=== PATIENT | female | born 1955 | race Caucasian/White ===

== ENCOUNTER → 2016-11-12 | Outpatient (CLI) | payer BC ==
--- NOTE | 2016-11-12 13:12 | P.PN ---
Progress Note - Text Patient returns for followup for chronic back pain with radiation to bilateral legs. Patient underwent LESI x 2 last year with excellent relief, which provided some relief for 6-8 months' interval. Patient continues on no pain medications at this morning. Patient denies adverse drug effects from medications. Today, pt denies new-onset weakness, bowel/bladder incontinence, or any other signs or symptoms of cauda equina syndrome. There are no signs of acute intoxication, and no indications of medication diversion or overuse. In addition to above, 13-point review of systems is also negative for chest pain , shortness of breath, changes in vision, changes in hearing, new onset weakness , abdominal pain, diarrhea, extreme fatigue, malaise, fever, skin changes, homicidal or suicidal ideation, or bowel or bladder incontinence. Vital Signs: Reviewed in EMR Gen: WDWN, AAOx3, NAD HEENT: NCAT, EOMI, hearing grossly normal Pulm: resp unlabored Abd: soft, NT, ND Neck: supple, trachea midline ROM in flexion lumbar spine: reduced ROM in extension lumbar spine: reduced Lumbar paravertebral tenderness: + Facet loading: + SI joint tenderness: neg bilateral Duran's test: neg bilateral Straight leg raise: + LLE at 25 degrees Neuro: CN II-XII grossly intact, muscle strength lower extremities PRESERVED Imaging: Reviewed in EMR Assessment: 1. lumbar radiculopathy 2. chronic pain syndrome Plan: 1. Explanation: Opioid and psychological risk scores were reviewed. Diagnoses , prognoses, and multiple treatment options including but not limited to physical therapy, interventional therapies, adjuvant medical therapies, narcotic medication therapies, and surgery were discussed with the patient and all questions were answered to the patient's satisfaction. 2. Opioid agreement: no opioids prescribed today 3. Counseling: The patient was counseled extensively on BODY MASS INDEX, EXERCISE. Specifically, the patient was instructed regarding the importance of weight loss and regular exercise in the context of both chronic pain and overall health. 4. Procedures: LESI series starting in 4-6 weeks 5. Consultations: None 6. Investigations: None 7. Medications: none prescribed 8. Disposition: f/u for PQRS measures: 1-Patient's medications are documented in the chart. 2-Tobacco use is negative 3-Patient has not had a pneumococcal vaccine. 4-Advanced care planning discussed, patient unable to give. 5-Opioid contract NOT signed with the patient as no opioids prescribed. 6-Pain positive, follow-up visit or procedure scheduled 7-Patient's blood pressure measured and documented, and patient will follow up with the primary care due to hypertension. 8-Patient's weight was measured, and body mass index ABOVE the normal limits, and counseling was done. Patient instructed to follow up with PCP. 9-Patient WAS NOT identified as an unhealthy alcohol user.
== END | disposition home or self-care (01) ==
CPT/HCPCS: 99211

== ENCOUNTER 2016-12-26 06:31 | Day surgery (SDC) | payer BC ==
[2016-12-25 12:17] VITALS: BMI 25.9
[2016-12-26] MEDS ORDERED: LIDOCAINE 1% 20 ML VIAL (10MG/ML) FOR IV START INTRADERMA ONE (06:39)
[2016-12-26 06:47] VITALS: RESP 16; TEMP 98.2
[2016-12-26] MEDS ORDERED: LACTATED RINGERS 1,000 ML IV ONE (06:51)
[2016-12-26] MEDS ORDERED: fentaNYL (PF) 50 MCG/ML 2 ML AMP ONE (07:13)
[2016-12-26] MEDS ORDERED: IOHEXOL 180 MG/ML 1 ML ML ONE (07:13)
[2016-12-26] MEDS ORDERED: MIDAZOLAM 2 MG/2 ML VIAL ONE (07:13)
[2016-12-26] MEDS ORDERED: TRIAMCINOLONE ACETONIDE 40 MG/ML 1 ML VIAL ONE (07:13)
[2016-12-26] MEDS ORDERED: LACTATED RINGERS 1,000 ML IV SCH (07:30)
[2016-12-26] MEDS ORDERED: IV FLUID CONTINUATION 1,000 ML IV ONE (07:34)
[2016-12-26 07:51] VITALS: PULSE 60
--- NOTE | 2016-12-26 07:55 | FL ---
EXAMINATION TYPE: FL guided pain mgmt statistic DATE OF EXAM: 12/26/2016 7:32 AM HISTORY: Pain 10 sec fl time used during lumbar epidural 2 images scanned into pacs
[2016-12-26 08:01] VITALS: BP 120/79
--- NOTE | 2016-12-26 11:34 | P.PCN ---
Date of Procedure: 12/26/16 Surgeon: Lamonte Wang Pathology: none sent Condition: stable Disposition: PACU Description of Procedure: PREOPERATIVE DIAGNOSIS: 1-Lumbar radiculitis. POSTOPERATIVE DIAGNOSIS: 1-Lumbar radiculitis. PROCEDURE 1. Lumbar epidural steroid injection under fluoroscopic guidance at the L5-S1 level. 2. Lumbar epidurogram. ANESTHESIA: Local with 1% lidocaine; IV sedation with Versed/fentanyl. EBL: Minimal PROCEDURE INDICATION: The patient with low back pain and radiculitis symptoms unresponsive to conservative treatment. Fluoroscopy was used to optimize visualization of the needle placement and to maximize safety. Patient had excellent relief from previous lumbar epidural injections performed in 2013 at our facility. No use of blood thinners. PROCEDURE DESCRIPTION / TECHNIQUE: The patient was seen and identified in the preoperative area. Risks, benefits, complications, and alternatives were discussed with the patient, including but not limited to bleeding, infection, nerve damage, allergic reactions to medications, and incomplete pain relief. The patient agreed to proceed with the procedure and signed the consent after all questions were answered. IV was started, and vital signs were stable. Patient was taken to the OR and time out was completed to confirm patient position, procedure, laterality of pain, and allergies. The patient was placed in the prone position on procedure table and a pillow was placed under the abdomen to reduce lumbar lordosis. The lumbosacral area was prepped and draped in the usual sterile fashion. Critical pause was taken. Vital signs were closely monitored during the procedure. Conscious sedation was used during the procedure to decrease patients anxiety. Using anterior-posterior fluoroscopy, the L5-S1 interlaminar space was identified and the skin over this site was marked and then infiltrated with 1% lidocaine subcutaneously. Subsequently, a 20-gauge 3.5" Tuohy epidural needle was inserted and advanced toward the epidural space using the Loss of resistance technique and guided by AP and lateral fluoroscopy. The correct needle position in the epidural space was verified with the injection of 2 mL of the water soluble contrast dye Omnipaque 300 contrast and observing an excellent epidurogram with the epidural spread of the dye, after negative aspiration for blood and CSF and in the absence of paresthesias. Again after negative aspiration, a 8 ml mixture containing 80 mg of Kenalog and 4 ml of preservative free Normal Saline, and 2 ml of preservative free lidocaine 1% solution was injected and a washout of epidurogram was seen. Needle was withdrawn intact, skin was cleansed, and bandages were applied. COMPLICATIONS: None COMMENTS: DISPOSITION / PLANS: The patient was placed in a supine position and transferred to the recovery area in a stable condition for observation. There was no evidence of lower extremity motor or sensory deficit after the procedure. Patient was discharged from the recovery room after meeting discharge criteria. Home discharge instructions were given to the patient by the staff. The patient was reexamined prior to discharge and there were no issues. The patient will schedule a follow up procedure in 4-6 weeks.
== END 2016-12-26 08:10 | disposition home or self-care (01) ==
LOC: ORPAIN 06:31
PROVIDERS: ATTEND Anesthesiology
DX: G89.29 Other chronic pain (principal); M54.16 Radiculopathy, lumbar region; E78.5 Hyperlipidemia, unspecified; E03.9 Hypothyroidism, unspecified; F41.9 Anxiety disorder, unspecified; Z88.2 Allergy status to sulfonamides; Z88.8 Allergy status to other drugs, medicaments and biological substances; Z79.1 Long term (current) use of non-steroidal anti-inflammatories (NSAID); Z79.899 Other long term (current) drug therapy
CPT/HCPCS: 62323; 99152; J2250; J3301; Q9965; J3010

== ENCOUNTER → 2016-12-30 | Outpatient (CLI) | payer BC ==
--- NOTE | 2016-12-30 11:39 | XR ---
EXAMINATION TYPE: XR shoulder complete LT DATE OF EXAM: 12/30/2016 11:20 AM CLINICAL HISTORY: pain COMPARISON: NONE TECHNIQUE: Three views of the left shoulder are obtained. FINDINGS: There is no acute fracture/dislocation evident. The acromioclavicular and glenohumeral kilo int spaces appear moderately narrowed. Bone spur formation noted about the humeral head.. The visual ized ribs are intact and unremarkable. IMPRESSION: 1. There is no acute fracture or dislocation. ICD 10 NO FRACTURE, INITIAL EVALUATION
== END | disposition home or self-care (01) ==
LOC: RADXRMAIN 11:00
PROVIDERS: ATTEND Family Medicine
DX: M25.512 Pain in left shoulder (principal)

== ENCOUNTER 2017-03-20 09:23 | Day surgery (SDC) | payer BC ==
[2017-03-20 09:38] VITALS: RESP 16; TEMP 98.2
[2017-03-20] MEDS ORDERED: LACTATED RINGERS 1,000 ML IV ONE (09:41)
[2017-03-20] MEDS ORDERED: LIDOCAINE 1% 20 ML VIAL (10MG/ML) FOR IV START INTRADERMA ONE (09:42)
[2017-03-20] MEDS ORDERED: MIDAZOLAM 2 MG/2 ML VIAL ONE (10:31)
[2017-03-20] MEDS ORDERED: IOHEXOL 180 MG/ML 1 ML ML ONE (10:31)
[2017-03-20] MEDS ORDERED: fentaNYL (PF) 50 MCG/ML 2 ML AMP ONE (10:31)
[2017-03-20] MEDS ORDERED: BUPIVACAINE (PF) 0.25% 30 ML VIAL ONE (10:31)
[2017-03-20] MEDS ORDERED: TRIAMCINOLONE ACETONIDE 40 MG/ML 1 ML VIAL ONE (10:31)
--- NOTE | 2017-03-20 10:49 | P.PCN ---
Date of Procedure: 03/20/17 Preoperative Diagnosis: Lumbar degenerative disc disease Postoperative Diagnosis: Same as above Procedure(s) Performed: Lumbar epidural steroid injection under fluoroscopic guidance Implants: Anesthesia: other (Moderate sedation) Surgeon: Dylan Perez Pathology: none sent Condition: stable Disposition: PACU Indications for Procedure: Operative Findings: Description of Procedure: The patient was seen in the preop holding area consent was obtained then she was brought into the procedure 1 placed in prone position. Skin was prepped with Betadine 3 and draped in a sterile manner. Lidocaine 1% was used to numb the skin up at the target point that was at the L5-S1 level. I used 20-gauge 3- 1/2 inch Touhy epidural needle with iodt-rn-daqgusvpvl to air to identify the epidural space. There was positive lfrp-pw-efzbfctydf to air at about 7 cm from skin negative aspiration for any CSF or blood and negative paresthesia after that I injected 1 mL of Omnipaque which showed typical epidurogram on the AP and lateral views of fluoroscopy then I injected 40 mg of Kenalog +2 MLS of Marcaine 0.25% +4 MLS of preservative free normal saline to a total volume of 7 MLS in epidural space. Patient tolerated procedure well.
[2017-03-20] MEDS ORDERED: IV FLUID CONTINUATION 1,000 ML IV ONE (10:52)
--- NOTE | 2017-03-20 10:59 | FL ---
Fluoroscopy INDICATION: Pain FINDINGS: Fluoroscopy time: 5 seconds. Images obtained: 3. IMPRESSIONS: 1. Documentation of fluoroscopy.
[2017-03-20 11:06] VITALS: BP 122/79; PULSE 56
[2017-03-20] MEDS ORDERED: LACTATED RINGERS 1,000 ML IV SCH (11:15)
== END 2017-03-20 11:41 | disposition home or self-care (01) ==
LOC: ORPAIN 09:23
PROVIDERS: ATTEND Anesthesiology
DX: M51.36 Other intervertebral disc degeneration, lumbar region (principal); Z88.2 Allergy status to sulfonamides; Z88.8 Allergy status to other drugs, medicaments and biological substances
CPT/HCPCS: 62323; J2250; J3301; Q9965; J3010

== ENCOUNTER → 2017-05-13 | Outpatient (CLI) | payer BC ==
[2017-05-13 15:00] VITALS: BP 147/91; PULSE 71; RESP 18; TEMP 98.1
--- NOTE | 2017-05-13 15:04 | P.PN ---
Progress Note - Text Patient returns for followup for chronic back pain with radiation to bilateral legs. Patient underwent LESI x 3 recently, which provided excellent relief and patient currently has no pain. Patient continues on no pain medications at this time. Patient denies adverse drug effects from medications. Today, pt denies new-onset weakness, bowel/bladder incontinence, or any other signs or symptoms of cauda equina syndrome. There are no signs of acute intoxication, and no indications of medication diversion or overuse. In addition to above, 13-point review of systems is also negative for chest pain , shortness of breath, changes in vision, changes in hearing, new onset weakness , abdominal pain, diarrhea, extreme fatigue, malaise, fever, skin changes, homicidal or suicidal ideation, or bowel or bladder incontinence. Vital Signs: Reviewed in EMR Gen: WDWN, AAOx3, NAD HEENT: NCAT, EOMI, hearing grossly normal patient not examined Neuro: CN II-XII grossly intact Imaging: Reviewed in EMR Assessment: 1. lumbar radiculopathy 2. chronic pain syndrome Plan: 1. Explanation: Opioid and psychological risk scores were reviewed. Diagnoses , prognoses, and multiple treatment options including but not limited to physical therapy, interventional therapies, adjuvant medical therapies, narcotic medication therapies, and surgery were discussed with the patient and all questions were answered to the patient's satisfaction. 2. Opioid agreement: no opioids prescribed today 3. Counseling: The patient was counseled extensively on BODY MASS INDEX, EXERCISE. Specifically, the patient was instructed regarding the importance of weight loss and regular exercise in the context of both chronic pain and overall health. 4. Procedures: none for now 5. Consultations: None 6. Investigations: None 7. Medications: none prescribed 8. Disposition: f/u as needed, patient can call to schedule next LESI series PQRS measures: 1-Patient's medications are documented in the chart. 2-Tobacco use is negative 3-Patient has not had a pneumococcal vaccine. 4-Advanced care planning discussed, patient unable to give. 5-Opioid contract NOT signed with the patient as no opioids prescribed. 6-Pain positive, follow-up visit or procedure scheduled 7-Patient's blood pressure measured and documented, and patient will follow up with the primary care due to hypertension. 8-Patient's weight was measured, and body mass index ABOVE the normal limits, and counseling was done. Patient instructed to follow up with PCP. 9-Patient WAS NOT identified as an unhealthy alcohol user.
== END ==
LOC: PNWHC3 14:29
PROVIDERS: ATTEND Anesthesiology
DX: M54.16 Radiculopathy, lumbar region (principal); Z79.891 Long term (current) use of opiate analgesic
CPT/HCPCS: 99211

== ENCOUNTER → 2017-05-14 | Outpatient (CLI) | payer BC ==
--- NOTE | 2017-05-15 09:28 | MM ---
Reason for exam: screening (asymptomatic). Last mammogram was performed 1 year and 2 months ago. History: Patient is postmenopausal. Cyst aspiration of the right breast, 1999. Took hormonal contraceptives for 8 years. Physical Findings: A clinical breast exam by your physician is recommended on an annual basis and results should be correlated with mammographic findings. MG Screening Mammo w CAD Bilateral CC and MLO view(s) were taken. Prior study comparison: March 08, 2016, bilateral MG screening mammo w CAD. There are scattered fibroglandular densities. Previous mammotome biopsy in the right breast. No significant changes when compared with prior studies. ASSESSMENT: Benign, BI-RAD 2 RECOMMENDATION: Routine screening mammogram of both breasts in 1 year.
== END | disposition home or self-care (01) ==
LOC: RADMAMWWP 09:00
PROVIDERS: ATTEND Family Medicine
DX: Z12.31 Encounter for screening mammogram for malignant neoplasm of breast (principal)

== ENCOUNTER 2017-05-30 09:34 | Day surgery (SDC) | payer BC ==
[2017-05-27 14:17] VITALS: BMI 24.1
[~2017-05-30 09:34] MED LIST: LACTATED RINGERS 1,000 ML IV SCH; LIDOCAINE 1% 20 ML VIAL (10MG/ML) FOR IV START INTRADERMA PRN
[2017-05-30 10:37] VITALS: RESP 16; TEMP 97.3
--- NOTE | 2017-05-30 11:52 | P.PCN ---
Date of Procedure: 05/30/17 Preoperative Diagnosis: Postoperative Diagnosis: Procedure(s) Performed: BRIEF HISTORY: Patient is a 62-year-old pleasant white female, scheduled for an elective colonoscopy as a part of screening for colorectal neoplasia. She does have strong family history of colon cancer in her brother at age 70, the studies 35 and the nephew at age 40. Her last colonoscopy was 6 years ago and was normal. PROCEDURE PERFORMED: Colonoscopy. PREOPERATIVE DIAGNOSIS: Screening for colon cancer/family history of colon cancer. IV sedation per Anesthesia. PROCEDURE: After informed consent was obtained, the patient, was brought into the endoscopy unit. IV sedation was administered by Anesthesia under continuous monitoring. Digital rectal examination was normal. Initially the Olympus CF- 160 flexible video colonoscope was then inserted in the rectum, gradually advanced into the cecum without any difficulty. Careful examination was performed as the scope was gradually being withdrawn. Ileocecal valve and the appendiceal orifice were visualized and appeared normal. Prep was excellent. Mucosa of the cecum, ascending colon, transverse colon, descending colon, sigmoid colon, and rectum appeared normal. Moderate sigmoid diverticulosis seen. Retroflexion was performed in the rectum and no lesions were seen. The patient tolerated the procedure well. IMPRESSION: Normal-appearing colon from rectum to cecum with no evidence of colorectal neoplasia . Scattered sigmoid diverticulosis. RECOMMENDATIONS: Findings of this examination were discussed with the patient as well as her family.. She was advised to have a repeat screening colonoscopy in 5 years because of the family history of colon cancer. Implants: Indications for Procedure: Operative Findings: Description of Procedure:
[2017-05-30 13:00] VITALS: BP 98/69; PULSE 70
== END 2017-05-30 13:01 | disposition home or self-care (01) ==
LOC: ORWHC2ENDO 09:34
PROVIDERS: ATTEND Internal Medicine Gastroenterology
DX: Z12.11 Encounter for screening for malignant neoplasm of colon (principal); K57.30 Diverticulosis of large intestine without perforation or abscess without bleeding; Z80.0 Family history of malignant neoplasm of digestive organs; E78.5 Hyperlipidemia, unspecified; E07.9 Disorder of thyroid, unspecified; Z79.899 Other long term (current) drug therapy; Z88.1 Allergy status to other antibiotic agents; Z88.2 Allergy status to sulfonamides; Z88.8 Allergy status to other drugs, medicaments and biological substances

== ENCOUNTER → 2017-12-15 | Outpatient (CLI) | payer BC ==
--- NOTE | 2017-12-15 09:32 | XR ---
EXAMINATION TYPE: XR foot complete LT DATE OF EXAM: 12/15/2017 COMPARISON: None HISTORY: 62-year-old female with dorsal left foot pain TECHNIQUE: 3 views FINDINGS: Mild degenerative change at the first MTP joint. Tiny plantar calcaneal spur. No acute fracture, subl uxation, or dislocation seen. Minimal dorsal mid foot degenerative spurring. IMPRESSION: Minimal dorsal mid foot degenerative spurring and mild degenerative change at the first MTP joint. Ti ny plantar calcaneal spur.
== END | disposition home or self-care (01) ==
LOC: RADXRMAIN 08:56
PROVIDERS: ATTEND Physician Assistant
DX: M77.32 Calcaneal spur, left foot (principal)

== ENCOUNTER → 2018-01-10 | Outpatient (CLI) | payer MEDICARE ==
--- NOTE | 2018-01-12 16:19 | MR ---
EXAMINATION TYPE: MR ankle LT wo con DATE OF EXAM: 01/10/2018 COMPARISON: NONE HISTORY: Left Ankle pain and Swelling x 3 months Standard multiplanar, multisequence MRI departmental protocol Multiplanar, multisequence images of the left ankle were acquired. FINDINGS: Distal Achilles tendon is within normal limits. Visualized portion of plantar fascia is unr emarkable. There is focal area of fluid along mid to distal aspect of the PL tendon seen best axial images 8 thr ough 11. Tendon remains intact. PB is felt within normal limits. Flexor tendons posterior medially are felt intact. Areas of increased signal seen in distal PT tendon , for reference coronal image 12. Mild diffuse subcutaneous edema medially is noted Extensor tendons anteriorly are intact. Anterior tibiofibular and the anterior talofibular ligaments are intact. There is moderate tibiotalar joint effusion. Medial deltoid ligaments are intact. Bone marrow signal intensity is preserved. Ankle mortise symmetry is maintained. There is subchondral cystic change midfoot level particularly at Lisfranc joint worse at the base of second metatarsal. N ormal sinus tarsi fat is seen. IMPRESSION: 1. Mild medial subcutaneous edema. Small to moderate-sized tibiotalar joint effusion. 2. Mild Tenosynovitis distal PL tendon. 3. Midfoot arthropathy as detailed above. 4. Partial tear/tendinosis of the distal PT tendon. 5. No ligamentous tear identified.
== END | disposition home or self-care (01) ==
LOC: RADMRIMAIN 12:00
PROVIDERS: ATTEND Orthopaedic Surgery
DX: M65.9 Synovitis and tenosynovitis, unspecified (principal); M12.872 Other specific arthropathies, not elsewhere classified, left ankle and foot

== ENCOUNTER → 2018-05-18 | Outpatient (CLI) | payer MEDICARE ==
--- NOTE | 2018-05-20 10:55 | MM ---
Reason for exam: screening (asymptomatic). Last mammogram was performed 1 year ago. History: Patient is postmenopausal. Cyst aspiration of the right breast, 1999. Took hormonal contraceptives for 8 years. Physical Findings: A clinical breast exam by your physician is recommended on an annual basis and results should be correlated with mammographic findings. MG 3D Screening Mammo W/Cad Bilateral CC and MLO view(s) were taken. Prior study comparison: May 14, 2017, bilateral MG screening mammo w CAD. March 08, 2016, bilateral MG screening mammo w CAD. There are scattered fibroglandular densities. No suspicious abnormality. No significant changes when compared with prior studies. ASSESSMENT: Negative, BI-RAD 1 RECOMMENDATION: Routine screening mammogram of both breasts in 1 year.
== END | disposition home or self-care (01) ==
LOC: RADMAMWWP 16:28
PROVIDERS: ATTEND Family Medicine
DX: Z12.31 Encounter for screening mammogram for malignant neoplasm of breast (principal)
CPT/HCPCS: 77063; 77067

== ENCOUNTER → 2018-11-19 | Outpatient (CLI) | payer MEDICARE | END | disposition home or self-care (01) | LOC: LABWHC1 10:42 | PROVIDERS: ATTEND Nurse Practitioner Adult Health | DX: E78.2 Mixed hyperlipidemia (principal) | CPT/HCPCS: 36415; 80061; 84450; 84460 ==

== ENCOUNTER → 2019-06-21 | Outpatient (CLI) | payer MEDICARE ==
[2019-06-21 18:04] LABS: Chol/HDL Ratio 2.27; LDL Cholesterol,Calculated 80.2 mg/dL (0.0-131.0); VLDL Calculation 19.8 mg/dL (5.00-40.00)
== END | disposition home or self-care (01) ==
LOC: LABWHC1 09:28
PROVIDERS: ATTEND Nurse Practitioner Adult Health
DX: E78.2 Mixed hyperlipidemia (principal)
CPT/HCPCS: 36415; 80061; 84450; 84460

== ENCOUNTER 2020-08-14 07:35 | Observation (INO) | payer MEDICARE ==
[2020-08-14] MEDS ORDERED: methylPREDNISolone SOD SUCCI 125 MG/2 ML VIAL IM ONE (08:11)
[2020-08-14] MEDS ORDERED: MORPHINE SULFATE 4 MG/ML SYRINGE IM STA (08:11)
[2020-08-14] MEDS ORDERED: ORPHENADRINE 30 MG/ML 2 ML VIAL IM STA (08:11)
--- NOTE | 2020-08-14 08:22 | ED ---
General Adult HPI - General Chief complaint: Extremity Problem,Nontraumatic Stated complaint: hip pain Time Seen by Provider: 08/14/20 07:56 Source: patient, RN notes reviewed, old records reviewed Mode of arrival: ambulatory Limitations: no limitations - History of Present Illness Initial comments: Chivo is a 65-year-old female presents returns today with complaint of lower back pain and sciatica down the left leg. She's been taking anti-inflammatory medicine steroid reports the pain is more severe today. Patient states that she received injections from her PCPs office on Friday. Patient states that she has had no loss of control of urine or bowel habits. - Related Data Home Medications Medication Instructions Recorded Confirmed Atorvastatin [Lipitor] 40 mg PO HS 11/12/16 08/14/20 Levothyroxine Sodium [Synthroid] 88 mcg PO DAILY 05/27/17 08/14/20 Baclofen [Lioresal] 10 mg PO BID PRN 08/14/20 08/14/20 Ibuprofen [Advil] 800 mg PO DAILY PRN 08/14/20 08/14/20 Irbesartan/Hydrochlorothiazide 1 tab PO DAILY 08/14/20 08/14/20 [Irbesartan-Hctz 300-12.5 mg Tb] Allergies Allergy/AdvReac Type Severity Reaction Status Date / Time ciprofloxacin [From Cipro] Allergy Unknown Swelling Verified 08/14/20 08:53 metoclopramide [From Reglan] Allergy Rash/Hives Verified 08/14/20 08:53 Sulfa (Sulfonamide Allergy Rash/Hives Verified 08/14/20 08:53 Antibiotics) Review of Systems ROS Statement: Those systems with pertinent positive or pertinent negative responses have been documented in the HPI. ROS Other: All systems not noted in ROS Statement are negative. Past Medical History Past Medical History: Hyperlipidemia, Thyroid Disorder Additional Past Medical History / Comment(s): TRIGEMINAL PVCs. HYPOTHYROID. History of Any Multi-Drug Resistant Organisms: None Reported Past Surgical History: Appendectomy, Cardiac Ablation, Hysterectomy, Orthopedic Surgery Additional Past Surgical History / Comment(s): TWO FAILED ATTEMPTS/CARDIAC ABLATION FOR PVC. Past Anesthesia/Blood Transfusion Reactions: No Reported Reaction Past Psychological History: No Psychological Hx Reported Smoking Status: Former smoker Past Alcohol Use History: Occasional Past Drug Use History: None Reported - Past Family History Mother Family Medical History: Cancer Brother(s) Family Medical History: Cancer, Coronary Artery Disease (CAD) General Exam - General Exam Comments Initial Comments: 65-year-old female. Alert and oriented 3. No significant distress. Limitations: no limitations General appearance: alert, in no apparent distress Head exam: Present: atraumatic, normocephalic, normal inspection Eye exam: Present: normal appearance, PERRL, EOMI. Absent: scleral icterus, conjunctival injection, periorbital swelling ENT exam: Present: normal exam, mucous membranes moist Neck exam: Present: normal inspection. Absent: tenderness, meningismus, lymphadenopathy Respiratory exam: Present: normal lung sounds bilaterally. Absent: respiratory distress, wheezes, rales, rhonchi, stridor Cardiovascular Exam: Present: regular rate, normal rhythm, normal heart sounds. Absent: systolic murmur, diastolic murmur, rubs, gallop, clicks GI/Abdominal exam: Present: soft, normal bowel sounds. Absent: distended, tenderness, guarding, rebound, rigid Extremities exam: Present: normal inspection, full ROM, normal capillary refill. Absent: tenderness, pedal edema, joint swelling, calf tenderness Back exam: Present: normal inspection, tenderness (Poinit tenderness over the left sciatic notch. No significant vertebral spinal tenderness.), other ( on her left leg and flex position. Significant pain with leg extension.). Absent: full ROM Neurological exam: Present: alert, oriented X3, CN II-XII intact Psychiatric exam: Present: normal affect, normal mood Skin exam: Present: warm, dry, intact, normal color. Absent: rash Course Vital Signs 08/14/20 07:44 Temperature 97.6 F Pulse Rate 65 Respiratory 16 Rate Blood Pressure 132/80 O2 Sat by Pulse 100 Oximetry - Reevaluation(s) Reevaluation #1: 08/14/20 09:13 Discussed with KT Cramer who requested admission to Dr. Davila with consults to Dr. Mcdaniel tomorrow. Medical Decision Making - Medical Decision Making Patient is a 65-year-old female with history of intermittent sciatic pain. Patient reports it's been worsening over the past week. She states that she has had no recent fall or trauma. Patient is unable to fully extend the left leg due to pain. She is neurovascularly intact with sensation equal in lower extremities and dorsalis pedis and posterior tibial pulse 2+ bilaterally. Patient attempted to have x-rays was unable tolerate keeping her leg straight to have x-rays completed. I discussed the case with Pam MERAZ who recommended admission Patient to receive IV steroids and possible MRI for back pain. Pt will be admitted to Dr. Clement. Disposition Clinical Impression: Intractable back pain, Sciatica Disposition: ADMITTED IP TO THIS HOSP Condition: Stable Is patient prescribed a controlled substance at d/c from ED?: No Referrals: Vincenzo Woo DO [Primary Care Provider] - 1-2 days Time of Disposition: 09:16
[2020-08-14] MEDS ORDERED: SODIUM CHLORIDE 0.9% 1,000 ML IV ONE (09:16)
[2020-08-14] MEDS ORDERED: HYDROmorphone 1 MG/ML 1 ML SYRINGE IVP STA (09:17)
[2020-08-14] MEDS ORDERED: MORPHINE SULFATE 4 MG/ML SYRINGE IV PRN (09:42)
[2020-08-14] MEDS ORDERED: ONDANSETRON 4 MG/2 ML VIAL IVP PRN (09:42)
[2020-08-14] MEDS ORDERED: ACETAMINOPHEN TAB 325 MG TAB PO PRN (09:42)
[2020-08-14] MEDS ORDERED: HYDROmorphone 1 MG/ML 1 ML SYRINGE IVP PRN (09:42)
[2020-08-14] MEDS ORDERED: IBUPROFEN 400 MG TAB PO PRN (09:42)
[2020-08-14] MEDS ORDERED: NALOXONE 0.4 MG/ML 1 ML VIAL IV PRN (09:42)
[2020-08-14] MEDS ORDERED: 0.9% NACL WITH KCL 20 MEQ/L 1,000 ML IV SCH (09:45)
[2020-08-14] MEDS ORDERED: methylPREDNISolone SOD SUCCI 125 MG/2 ML VIAL IV SCH (10:00)
[2020-08-14 10:10] LABS: Basophils % (A) 1 %; Eosinophils # (A) 0.1 k/uL (0-0.7); Eosinophils % (A) 1 %; HCT 39.4 % (34.0-46.0); HGB 13.2 gm/dL (11.4-16.0); Lymphocytes # (A) 1.2 k/uL (1.0-4.8); Lymphocytes % (A) 19 %; MCH 30.3 pg (25.0-35.0); MCHC 33.6 g/dL (31.0-37.0); MCV 90.2 fL (80.0-100.0); Monocytes # (A) 0.3 k/uL (0-1.0); Monocytes % (A) 5 %; Neutrophils # (A) 4.5 k/uL (1.3-7.7); Neutrophils % (A) 74 %; Platelet Count 253 k/uL (150-450); RBC 4.36 m/uL (3.80-5.40); RDW 12.2 % (11.5-15.5); WBC 6.2 k/uL (3.8-10.6)
[2020-08-14 10:18] LABS: ALT 21 U/L (4-34); AST 31 U/L (14-36); African American GFR (CKD) >90 (>60 ml/min/1.73 sqM); Albumin 4.2 g/dL (3.5-5.0); Alkaline Phosphatase 72 U/L (38-126); Anion Gap 4 mmol/L; Blood Urea Nitrogen 17 mg/dL (7-17); Calcium 9.4 mg/dL (8.4-10.2); Carbon Dioxide 26 mmol/L (22-30); Chloride 109 mmol/L (98-107); Glucose 95 mg/dL (74-99); Non-African American GFR(CKD) 88 (>60 ml/min/1.73 sqM); Potassium 4.5 mmol/L (3.5-5.1); Sodium 139 mmol/L (137-145); Total Bilirubin 0.4 mg/dL (0.2-1.3); Total Protein 7.1 g/dL (6.3-8.2)
[2020-08-14 10:19] LABS: INR 0.9 (<1.2); Partial Thromboplastin Time 25.6 sec (22.0-30.0); Prothrombin Time 9.5 sec (9.0-12.0)
--- NOTE | 2020-08-14 10:25 | XR ---
EXAMINATION TYPE: XR lumbar spine 2 or 3V DATE OF EXAM: 08/14/2020 Comparison: None Clinical History: 65-year-old female left hip pain, sciatica Findings: 5 lumbar type vertebral bodies. Moderate to advanced degenerative disc disease with disc space narrow ing, endplate spondylosis and sclerosis upper and mid lumbar spine. Trace grade 1 retrolisthesis at L 2-L3. Remaining alignment is maintained. Facet arthropathy mid to lower lumbar spine. Vertebral body heights are preserved. Impression: Moderate to advanced degenerative disc disease upper and mid lumbar spine and facet arthropathy mid t o lower lumbar spine. Degenerative trace grade 1 retrolisthesis at L2-L3. No vertebral compression co llapse.
--- NOTE | 2020-08-14 10:26 | XR ---
EXAMINATION TYPE: AP view pelvis and 2 views left hip DATE OF EXAM: 08/14/2020 COMPARISON: NONE HISTORY: 65 year-old female left hip pain FINDINGS: Mild superolateral narrowing of bilateral hip joint space appears relatively symmetric from side to s renée. Multiple pelvic phleboliths. Moderate stool within the visualized colon. Mild marginal spurring at the left hip. No acute fracture, subluxation, or dislocation. IMPRESSION: Mild bilateral hip OA. No acute osseous abnormality seen.
--- NOTE | 2020-08-14 12:33 | P.HPOR ---
History of Present Illness H&P Date: 08/14/20 Chief Complaint: Intractable low back pain This is a 65-year-old female presented to the emergency department early this morning with intractable low back and left lower extremity pain. She states that she was seen by her primary care on Friday and given a shot of Toradol and placed on a muscle relaxant. Her pain has gotten progressively worse and had immediate severe pain last evening when turning in bed. She was unable to ambulate secondary to pain. She is brought to the emergency department for evaluation. She is admitted to our service for further evaluation and pain management. Past Medical History Past Medical History: Hyperlipidemia, Thyroid Disorder Additional Past Medical History / Comment(s): TRIGEMINAL PVCs. HYPOTHYROID. History of Any Multi-Drug Resistant Organisms: None Reported Past Surgical History: Appendectomy, Cardiac Ablation, Hysterectomy, Orthopedic Surgery Additional Past Surgical History / Comment(s): TWO FAILED ATTEMPTS/CARDIAC ABLATION FOR PVC. Past Anesthesia/Blood Transfusion Reactions: No Reported Reaction Past Psychological History: No Psychological Hx Reported Smoking Status: Former smoker Past Alcohol Use History: Occasional Past Drug Use History: None Reported - Past Family History Mother Family Medical History: Cancer Brother(s) Family Medical History: Cancer, Coronary Artery Disease (CAD) Medications and Allergies Home Medications Medication Instructions Recorded Confirmed Type Atorvastatin [Lipitor] 40 mg PO HS 11/12/16 08/14/20 History Levothyroxine Sodium [Synthroid] 88 mcg PO DAILY 05/27/17 08/14/20 History Baclofen [Lioresal] 10 mg PO BID PRN 08/14/20 08/14/20 History Ibuprofen [Advil] 800 mg PO DAILY PRN 08/14/20 08/14/20 History Irbesartan/Hydrochlorothiazide 1 tab PO DAILY 08/14/20 08/14/20 History [Irbesartan-Hctz 300-12.5 mg Tb] Allergies Allergy/AdvReac Type Severity Reaction Status Date / Time ciprofloxacin [From Cipro] Allergy Unknown Swelling Verified 08/14/20 08:53 metoclopramide [From Reglan] Allergy Rash/Hives Verified 08/14/20 08:53 Sulfa (Sulfonamide Allergy Rash/Hives Verified 08/14/20 08:53 Antibiotics) Physical Examination This is a pleasant 65-year-old female in no acute distress. She is alert and oriented 3. Exam of the head neck reveal no obvious deformity. She has full cervical spine motion without difficulty or pain. Exam of the upper extremities reveals no obvious deformity. She has full shoulder, elbow, wrist and finger motion bilaterally. Neurovascular status to the upper extremities is intact. Exam of the thoracic and lumbar spine reveal no obvious deformity. There is minimal pain with palpation about the lower lumbar spine. There is pain over the left paraspinal musculature and left hip. Exam of the lower extremities reveals no shortening or rotational deformity. She is now able to bend the left leg with minimal pain. She has pain with straight leg raise. There is weakness with dorsiflexion of the great toe against resistance compared to the right foot. Straight leg raise is positive, producing pain to the left buttock. Results X-rays of the left hip reveal mild hip joint narrowing. No acute fracture or bony abnormality. X-rays of the lumbar spine reveal diffuse degenerative disc disease. There is loss of normal lumbar lordosis. There is significant disc space narrowing at L2-3 and L3-4, some disc space narrowing at L4 5. No acute fractures identified. - Labs Labs: Abnormal Lab Results - Last 24 Hours (Table) 08/14/20 Range/Units 10:03 Chloride 109 H (98-107) mmol/L H & H 08/14/20 Range/Units 10:03 Hgb 13.2 (11.4-16.0) gm/dL Hct 39.4 (34.0-46.0) % Coagulation 08/14/20 Range/Units 10:03 INR 0.9 (<1.2) Result Diagrams: 08/14/20 10:03 08/14/20 10:03 Assessment and Plan (1) Degenerative joint disease (DJD) of lumbar spine Current Visit: Yes Status: Acute Code(s): M47.816 - SPONDYLOSIS W/O MYELOPATHY OR RADICULOPATHY, LUMBAR REGION SNOMED Code(s): 140694941 (2) Intractable back pain Current Visit: Yes Status: Acute Code(s): M54.9 - DORSALGIA, UNSPECIFIED SNOMED Code(s): 016353676 (3) Sciatica Current Visit: Yes Status: Acute Code(s): M54.30 - SCIATICA, UNSPECIFIED SIDE SNOMED Code(s): 33994629 Plan: The clinical and x-ray findings are discussed with the patient. It is recommended she be admitted for further evaluation with MRI. I will consult Dr. Garcia for pain management evaluation for possible epidural steroid injection. We will also consult her primary care for medical management.
--- NOTE | 2020-08-14 14:17 | XR ---
MRI ORBIT HISTORY: Pre-MRI, back pain leg pain 3 views of the orbits Bone mineralization is maintained. Right frontal sinus is somewhat atrophic. Orbits are intact. Paran hitesh sinuses show no air-fluid level. IMPRESSION: No radiographic foreign body is evident.
--- NOTE | 2020-08-14 15:25 | P.PAINCN ---
History of Present Illness - Reason for Consult Consult date: 08/14/20 - History of Present Illness this is 65 years old female who was admitted to [facility], secondary to CVA or intractable low back with radiation to the left lower extremity, the pain is constant and increases with any activity, started last week, without any initiating event, and getting progressively worse over the last few days, she denies any fever or night sweats she denies any change in the bowel movement or urination but she reported that she is not able to ambulate secondary to severe pain in the back and left lower extremity Past Medical History Past Medical History: Hyperlipidemia, Thyroid Disorder Additional Past Medical History / Comment(s): TRIGEMINAL PVCs. HYPOTHYROID. History of Any Multi-Drug Resistant Organisms: None Reported Past Surgical History: Appendectomy, Cardiac Ablation, Hysterectomy, Orthopedic Surgery Additional Past Surgical History / Comment(s): TWO FAILED ATTEMPTS/CARDIAC ABLATION FOR PVC. Past Anesthesia/Blood Transfusion Reactions: No Reported Reaction Past Psychological History: No Psychological Hx Reported Smoking Status: Former smoker Past Alcohol Use History: Occasional Past Drug Use History: None Reported - Past Family History Mother Family Medical History: Cancer Additional Family Medical History / Comment(s): non hodgkins lymphoma Brother(s) Family Medical History: Cancer, Coronary Artery Disease (CAD) Medications and Allergies Home Medications Medication Instructions Recorded Confirmed Type Atorvastatin [Lipitor] 40 mg PO HS 11/12/16 08/14/20 History Levothyroxine Sodium [Synthroid] 88 mcg PO DAILY 05/27/17 08/14/20 History Baclofen [Lioresal] 10 mg PO BID PRN 08/14/20 08/14/20 History Ibuprofen [Advil] 800 mg PO DAILY PRN 08/14/20 08/14/20 History Irbesartan/Hydrochlorothiazide 1 tab PO DAILY 08/14/20 08/14/20 History [Irbesartan-Hctz 300-12.5 mg Tb] Allergies Allergy/AdvReac Type Severity Reaction Status Date / Time ciprofloxacin [From Cipro] Allergy Unknown Swelling Verified 08/14/20 08:53 metoclopramide [From Reglan] Allergy Rash/Hives Verified 08/14/20 08:53 Sulfa (Sulfonamide Allergy Rash/Hives Verified 08/14/20 08:53 Antibiotics) Physical Exam Vitals: Vital Signs Temp Pulse Pulse Resp BP BP Pulse Ox 08/14/20 15:00 98.0 F 63 16 120/77 96 08/14/20 14:01 97.7 F 63 18 113/67 99 08/14/20 14:00 63 18 113/67 99 08/14/20 13:00 18 111/73 99 08/14/20 12:00 59 L 18 109/67 99 08/14/20 11:00 58 L 18 127/70 99 08/14/20 10:00 18 08/14/20 09:00 18 08/14/20 08:47 18 08/14/20 07:44 97.6 F 65 16 132/80 100 Intake and Output 08/14/20 08/14/20 08/14/20 06:59 14:59 22:59 Other: Weight 60.781 kg Physical Examinations : -Constitutiona : Cooperative , not in acute distress . -HEENT : nech : supple , no Lymphadenopathy , normal thyroid size . : eyes : no ptosis , no icterus, no photophobia. - neurologic : Cranial nerve II to XII intact , no focal neurological deffecit . -psychatric : alert , oriented X 3 , appropriate affect , intact judgment and insight . -Lymphatic : no Lymphadenopathy . - musculoskeltal : Lumber spine moter stegnth lower extremities ,thigh and legs 5/5 Right side , 4/5 Left side deep tendon reflexes : normal Knee Jerk , normal ankle Jerk lumber facet Loading Test =positive Right , positive Left Range of motion of the lumbar spine Flexion 30 degrees, extension 10 degrees strait leg raising test = positive at 30 degreeon the left side Fabere test= positive Right , and positive LT . mild tenderness over the Sacroiliac joint on the Right , and Left sides Results CBC & Chem 7: 08/14/20 10:03 08/14/20 10:03 Labs: Abnormal Lab Results - Last 24 Hours (Table) 08/14/20 Range/Units 10:03 Chloride 109 H (98-107) mmol/L Comments: x-ray of the lumbar spine= multilevel lumbar degenerative disc disease and multilevel lumbar facet arthropathy Number of the lumbar spine= pending Assessment and Plan Plan: assessment and plan=1-lumbar radiculopathy. 2-lumbar degenerative disc disease. 3-lumbar spondylosis with lumbar facet arthropathy without myelopathy. patient will be in good candidate to have lumbar epidural steroid injections under fluoroscopy guidance which can be done tomorrow morning Time with Patient: Less than 30 PQRS Measure Charge Sheet PQRS Narrative: Smoking Status Former smoker Blood Pressure [Left Arm] 120/77 Blood Pressure 113/67 Pain Intensity [Lower Back] 0 Pain Intensity 0 Pain Scale Used Numeric (1 - 10) Scale Used Numeric (1 - 10) Home Medications: Ambulatory Orders Atorvastatin [Lipitor] 40 mg PO HS 11/12/16 Levothyroxine Sodium [Synthroid] 88 mcg PO DAILY 05/27/17 Baclofen [Lioresal] 10 mg PO BID PRN 08/14/20 Ibuprofen [Advil] 800 mg PO DAILY PRN 08/14/20 Irbesartan/Hydrochlorothiazide [Irbesartan-Hctz 300-12.5 mg Tb] 1 tab PO DAILY 08/14/20
[2020-08-14] MEDS: HYDROmorphone 0.5 MG/0.5 ML SYRINGE IVP PRN ×2 (16:06→22:55)
[2020-08-14] MEDS: methylPREDNISolone SOD SUCCI 125 MG/2 ML VIAL IV SCH (16:07)
[2020-08-14] MEDS: ONDANSETRON 4 MG/2 ML VIAL IVP PRN (18:07)
--- NOTE | 2020-08-14 21:31 | MR ---
EXAMINATION TYPE: MR lumbar spine wo con DATE OF EXAM: 08/14/2020 COMPARISON: Lumbar spine x-ray earlier today. HISTORY: Intractable back pain, sciatica TECHNIQUE: Multiplanar, multisequence imaging of the lumbar spine is performed without IV contrast. FINDINGS: There is redemonstration of slight dextroconvex scoliosis centered at L2 level. Sagittal im ages of the lumbar spine show vertebral body height to appear satisfactory. Loss of normal lumbar lee dosis. Multilevel disc desiccation. Multilevel disc space narrowing with relative sparing of the L5-S 1 level. Moderate to advanced disc space narrowing with heterogeneous bone uptake to endplate changes L3-L4 level. Moderate disc space narrowing with heterogeneous bone uptake to endplate changes L2-L3 level. Mild to moderate multilevel anterior spurring. The conus medullaris is normal in position and signal ending mid L1 level. Axial images at T12-L1 level shows mild broad-based disc bulge mildly effacing the anterior thecal sa c. Axial images at L1-L2 level show mild to moderate broad disc bulge mildly effacing the anterior theca l sac with mild facet arthropathy bilaterally. Patent bilateral neural foramina. Axial images at L2-L3 level show mild/moderate broad disc bulge and mild facet arthropathy bilaterall y. Mild effacement of the anterior left posterior lateral thecal sac. Mild left-sided inferior neural foraminal narrowing due to left foraminal disc protrusion component. Axial images at L3-L4 level mild/moderate facet arthropathy bilaterally. Spinal canal preserved. Mild right-sided and anterior inferior neural foraminal narrowing due to small foraminal disc protrusion. Axial images at L4-L5 level shows moderate facet degenerative changes and ligament flavum hypertrophy effacing posterior lateral thecal sac. There is mild/moderate broad-based posterior disc protrusion effacing the anterior thecal sac. There is [id number] bilateral anterior inferior neural forami nal narrowing. Axial images at L5-S1 levels with [id number] facet arthropathy bilaterally. Spinal canal is pre served. Patent bilateral neural foramina. Paraspinal muscle bulk is maintained. Partial visualization of suspected mildly distended bladder in the upper pelvis. IMPRESSION: Straightening of the lumbar spine with multilevel degenerative changes as detailed above. No suspicious findings seen to account for patient's clinical symptoms.
[2020-08-14] MEDS ORDERED: ATORVASTATIN 40 MG TAB PO SCH (22:15)
[2020-08-14] MEDS: ENOXAPARIN 40 MG/0.4 ML SYRINGE SQ SCH (22:57)
[2020-08-15] MEDS: methylPREDNISolone SOD SUCCI 125 MG/2 ML VIAL IV SCH ×2 (00:05→07:54)
[2020-08-15] MEDS: HYDROmorphone 0.5 MG/0.5 ML SYRINGE IVP PRN ×2 (04:20→07:55)
[2020-08-15] MEDS: ONDANSETRON 4 MG/2 ML VIAL IVP PRN ×2 (04:21→09:51)
[2020-08-15] MEDS ORDERED: LEVOTHYROXINE 88 MCG TAB PO SCH (06:30)
[2020-08-15] MEDS: ENOXAPARIN 40 MG/0.4 ML SYRINGE SQ SCH (08:04)
--- NOTE | 2020-08-15 08:08 | P.PN ---
Progress Note - Text Progress Note Date: 08/15/20 Patient is seen and examined today at bedside. She is having significant left lower extremity radiculopathy. She says that she is making some progress with the steroid medication and pain medication as she was able to stand up today and yesterday she was not able stand up and put weight on her leg at all. She has been able to void. She denies any fevers chills On exam she is afebrile stable vital signs She has sustained dorsiflexion plantar flexion and EHL on the left. She has some neural tension signs on left lower extremity. Her thighs and calves soft nontender The MRI report and images are reviewed and show a disc herniation at L4 5 on the left with significant left foraminal stenosis Assessment and plan Left lower extremity radiculopathy with disc herniation at L4 5 and left which correlates well with her left lower extremity and low back pain. Chronic low back pain and degenerative disc disease The patient has new left foraminal stenosis due to disc herniation. She does have chronic lumbar issues and has had initial pain management in the past. Her symptoms of the left lower extremity correlate well with the disc herniation at L4 5 and I think that she can have her the benefit with interventional pain management and epidural steroid injections. I appreciate Dr. Garcia's consultation and I would agree with the plan to proceed with epidural steroid injections today. If she is making good progress I think she can continue outpatient management and conservative care. We can see her back and consider further intervention and possible decompression surgery if she continues have significant symptoms or worsening of her pain. I discussed this with her and answered her questions and she is agreeable.
[2020-08-15] MEDS ORDERED: LOSARTAN 50 MG TAB PO SCH (09:00)
[2020-08-15] MEDS ORDERED: hydroCHLOROthiazide 25 MG TAB PO SCH (09:00)
[2020-08-15] MEDS ORDERED: LACTATED RINGERS 1,000 ML IV ONE (09:42)
[2020-08-15 09:46] VITALS: RESP 16
[2020-08-15] MEDS ORDERED: methylPREDNISolone ACETATE 40 MG/ML 1 ML VIAL ONE (10:04)
[2020-08-15] MEDS ORDERED: IOPAMIDOL M200 10 ML VIAL ONE (10:04)
--- NOTE | 2020-08-15 10:21 | P.PCN ---
Date of Procedure: 08/15/20 Procedure(s) Performed: PREOPERATIVE DIAGNOSIS: 1- Lumbar Degenerative Disc Diseases 2-Lumbar spondylosis with Facet arthropathy without myelopathy 3-lumbar radiculopathy POSTOPERATIVE DIAGNOSIS: 1-Lumber Degenerative Disc Diseases 2-Lumbar spondylosis with Facet arthropathy without myelopathy. 3-lumbar radiculopathy PROCEDURE 1. Lumbar epidural steroid injection under fluoroscopic guidance at the L5-S1 level. (Fluoroscopy imaging was available in radiology department) 2. Lumbar epidurogram. ANESTHESIA: Local with 1% lidocaine 3 ml a EBL: Minimal PROCEDURE INDICATION: The patient with low back pain and radiculitis symptoms unresponsive to conservative treatment. Fluoroscopy was used to optimize visualization of the needle placement and to maximize safety. PROCEDURE DESCRIPTION / TECHNIQUE: The patient was seen and identified in the preoperative area. Risks, benefits, complications including but not limited to infections ,bleeding ,allergic reaction to the medications ,nerve damage and not complete pain releife , and alternatives were discussed with the patient. The patient agreed to proceed with the procedure and signed the consent. IV was started, and vital signs were stable. Patient was taken to the OR and time out was completed. The patient was placed in the prone position on procedure table and a pillow was placed under the abdomen to reduce lumbar lordosis. The lumbosacral area was prepped and draped in the usual sterile fashion.ere closely monitored during the procedure. Conscious sedation was used during the procedure to decrease patients anxiety. Vital signs was monitered during the entire procedure. Using anterior-posterior fluoroscopy, the L5-S1 interlaminar space was identified and the skin over this site was marked and then infiltrated with 1% lidocaine subcutaneously. Subsequently, a 20-gauge Tuohy epidural needle was inserted and advanced toward the epidural space using the ``Loss of resistance technique and guided by AP and lateral fluoroscopy. The correct needle position in the epidural space was verified with the injection of 2 mL of the water soluble contrast dye Isovue 200 contrast and observing an excellent epidurogram with the epidural spread of the dye, after negative aspiration for blood and CSF and in the absence of paresthesias. Again after negative aspiration, a 6 ml mixture containing 80 mg of Depo-medrol , and 2 ml of preservative free Normal Saline, and 2 ml of preservative free lidocaine 1% solution was injected and a washout of epidurogram was seen. Needle was withdrawn intact, skin was cleansed, and bandages were applied. COMPLICATIONS: None DISPOSITION / PLANS: The patient was placed in a supine position and transferred to the recovery area in a stable condition for observation. There was no evidence of lower extremity motor or sensory deficit after the procedure. Patient was discharged from the recovery room after meeting discharge criteria. Home discharge instructions were given to the patient by the staff. The patient was reexamined prior to discharge. The patient will schedule a follow up in the clinic in 2-4 weeks. patient given prescription for [place] 5/325 one tablet by mouth every 8 hours when necessary dispensed 20 and she can be discharged home.
--- NOTE | 2020-08-15 10:31 | FL ---
EXAMINATION TYPE: FL guided pain mgmt statistic DATE OF EXAM: 08/15/2020 FLUOROSCOPY Fluoroscopy time of 2 seconds was used during lumbar epidural injection. 1 image/s document/s the pr dorothy.
--- NOTE | 2020-08-15 10:40 | P.DS ---
Providers Date of admission: 08/14/20 09:06 Expected date of discharge: 08/15/20 Attending physician: Grzegorz Clement Consults: 08/14/20 09:42 Consult Physician Stat Consulting Provider: Mary Mcdaniel Consult Reason/Comments: intractable back pain Do you want consulting provider notified?: Yes, Notify in am 08/14/20 12:32 Consult Physician Urgent Consulting Provider: Abebe Garcia Consult Reason/Comments: Pain management eval, poss henry. Do you want consulting provider notified?: Yes 08/14/20 12:35 Consult Physician Routine Consulting Provider: Vincenzo Woo Consult Reason/Comments: medical erich. Do you want consulting provider notified?: Yes Primary care physician: Vincenzo Woo - Discharge Diagnosis(es) (1) Degenerative joint disease (DJD) of lumbar spine Current Visit: Yes Status: Acute (2) Intractable back pain Current Visit: Yes Status: Acute (3) Sciatica Current Visit: Yes Status: Acute Hospital Course: This is a 65-year-old female presented to the emergency department early this morning with intractable low back and left lower extremity pain. She states that she was seen by her primary care on Friday and given a shot of Toradol and placed on a muscle relaxant. Her pain has gotten progressively worse and had immediate severe pain last evening when turning in bed. She was unable to ambulate secondary to pain. She is brought to the emergency department for evaluation. She is admitted to our service for further evaluation and pain management. The patient improved slightly with IV steroids. She was seen by pain management and was taken for a lumbar epidural steroid injection on 08/15/2020. Patient is doing well post procedure. She may be discharged to home today in stable condition. Patient Condition at Discharge: Stable Plan - Discharge Summary Discharge Rx Participant: Yes New Discharge Prescriptions: New Ondansetron Odt [Zofran Odt] 4 mg PO Q8HR PRN #14 tab PRN Reason: Nausea No Action Atorvastatin [Lipitor] 40 mg PO HS Levothyroxine Sodium [Synthroid] 88 mcg PO DAILY Irbesartan/Hydrochlorothiazide [Irbesartan-Hctz 300-12.5 mg Tb] 1 tab PO DAILY Ibuprofen [Advil] 800 mg PO DAILY PRN PRN Reason: Pain Baclofen [Lioresal] 10 mg PO BID PRN PRN Reason: Muscle Spasm Discharge Medication List Atorvastatin [Lipitor] 40 mg PO HS 11/12/16 [History] Levothyroxine Sodium [Synthroid] 88 mcg PO DAILY 05/27/17 [History] Baclofen [Lioresal] 10 mg PO BID PRN 08/14/20 [History] Ibuprofen [Advil] 800 mg PO DAILY PRN 08/14/20 [History] Irbesartan/Hydrochlorothiazide [Irbesartan-Hctz 300-12.5 mg Tb] 1 tab PO DAILY 08/14/20 [History] Ondansetron Odt [Zofran Odt] 4 mg PO Q8HR PRN #14 tab 08/15/20 [Rx] Follow up Appointment(s)/Referral(s): Mary Mcdaniel DO [Doctor of Osteopathic Medicine] - 1 Week Vincenzo Woo DO [Primary Care Provider] - 1-2 days Activity/Diet/Wound Care/Special Instructions: Pain management per Dr. Garcia. Follow up with Dr. Mcdaniel 2 weeks. Activity as tolerated. Discharge/Stand Alone Forms: Anes Pain/[facility] Instructions Discharge Disposition: HOME SELF-CARE
[2020-08-15 11:41] VITALS: BP 125/71; PULSE 61; TEMP 97.6
--- NOTE | 2020-08-15 23:55 | P.CONS ---
History of Present Illness - Reason for Consult Consult date: 08/15/20 Medical management Requesting physician: Grzegorz Clement - Chief Complaint Low back pain - History of Present Illness Consultation: This is a pleasant [address] Maria A Woo. Chronic stable medical conditions include hyperlipidemia, hypothyroid, PVCs. Patient's had a problem with sciatica/5 years. Has been getting steroid injections by Dr. Osman kyle. Patient going to see Dr. Woo because increasing pain in the lumbar area going down the left leg. She is not able to weight-bear. Symptoms became indicated much worse. Admitted for the same. No fever no chills. No involvement of the bladder. This morning patient did get a epidural steroid inj ection. Feeling better. Review of systems: GEN.: None EYES: None HEENT: None NECK: None RESPIRATORY: None CARDIOVASCULAR: None GASTROINTESTINAL: None GENITOURINARY: None MUSCULOSKELETAL: As above LYMPHATICS: None HEMATOLOGICAL: None PSYCHIATRY: None NEUROLOGICAL: None Past medical history to include: Hyperlipidemia, hypothyroid, sciatica, PVCs Social history: . Does not smoke. Alcohol occasionally. Physical examination: VITAL SIGNS: 97.4, 68, 16, 144/68, 97% room air GENERAL: BMI 25.3, sitting on bed, comfortable. EYES: Pupils equal. Conjunctiva normal. HEENT: External appearance of nose and ears normal, oral cavity grossly normal. NECK: JVD not raised; masses not palpable. HEART: First and second heart sounds are normal; no edema. LUNGS: Respiratory rate normal; clear to auscultation. ABDOMEN: Soft, nontender, liver spleen not palpable, no masses palpable. PSYCH: Alert and oriented x3; mood and affect normal. MUSCULAR skeletal: Good range of motion speculums left hip. NEUROLOGICAL: Cranial nerves grossly intact; no facial asymmetry, power and sensation grossly intact. LYMPHATICS: No lymph nodes palpable in the axilla and neck INVESTIGATIONS, reviewed in the clinical context: White count 6.2 hemoglobin 13.2 platelets 253 potassium 4.5 creatinine 0.7 to Lumbar spine x-ray moderate to advanced DJD MRI of the spine lumbar-multilevel DJD changes Assessment: -Acute on chronic worsening of sciatica with severe retinopathy going down the left leg. Patient is unable to weight-bear on the left leg. Now status post right injection feeling much better. -Hypothyroid -Essential hypertension -Hyperlipidemia Plan: Care was discussed with the patient. Questions were answered. She is pain is doing much better. Patient able to ablate. She'll follow-up with family doctor but discharge. Thank you Dr. Clement Past Medical History Past Medical History: Hyperlipidemia, Thyroid Disorder Additional Past Medical History / Comment(s): TRIGEMINAL PVCs. HYPOTHYROID. History of Any Multi-Drug Resistant Organisms: None Reported Past Surgical History: Appendectomy, Cardiac Ablation, Hysterectomy, Orthopedic Surgery Additional Past Surgical History / Comment(s): TWO FAILED ATTEMPTS/CARDIAC ABLATION FOR PVC. Past Anesthesia/Blood Transfusion Reactions: No Reported Reaction Past Psychological History: No Psychological Hx Reported Smoking Status: Former smoker Past Alcohol Use History: Occasional Past Drug Use History: None Reported - Past Family History Mother Family Medical History: Cancer Additional Family Medical History / Comment(s): non hodgkins lymphoma Brother(s) Family Medical History: Cancer, Coronary Artery Disease (CAD) Medications and Allergies Home Medications Medication Instructions Recorded Confirmed Type Atorvastatin [Lipitor] 40 mg PO HS 11/12/16 08/14/20 History Levothyroxine Sodium [Synthroid] 88 mcg PO DAILY 05/27/17 08/14/20 History Baclofen [Lioresal] 10 mg PO BID PRN 08/14/20 08/14/20 History Irbesartan/Hydrochlorothiazide 1 tab PO DAILY 08/14/20 08/14/20 History [Irbesartan-Hctz 300-12.5 mg Tb] Ondansetron Odt [Zofran Odt] 4 mg PO Q8HR PRN #14 tab 08/15/20 Rx Allergies Allergy/AdvReac Type Severity Reaction Status Date / Time ciprofloxacin [From Cipro] Allergy Unknown Swelling Verified 08/15/20 09:52 metoclopramide [From Reglan] Allergy Rash/Hives Verified 08/15/20 09:52 Sulfa (Sulfonamide Allergy Rash/Hives Verified 08/15/20 09:52 Antibiotics) Physical Exam Vitals: Vital Signs Temp Pulse Pulse Resp BP BP Pulse Ox 08/15/20 09:43 97.4 F L 68 16 144/68 97 08/15/20 05:00 97.8 F 61 14 124/63 96 08/14/20 23:50 16 08/14/20 21:00 97.5 F L 61 16 114/63 97 08/14/20 15:00 98.0 F 63 16 120/77 96 08/14/20 14:01 97.7 F 63 18 113/67 99 08/14/20 14:00 63 18 113/67 99 08/14/20 13:00 18 111/73 99 08/14/20 12:00 59 L 18 109/67 99 08/14/20 11:00 58 L 18 127/70 99 Intake and Output 08/14/20 08/15/20 08/15/20 22:59 06:59 14:59 Intake Total 300 100 50 Balance 300 100 50 Intake: IV 50 Oral 300 100 Other: Voiding Method Toilet # Voids 1 1 1 Results CBC & Chem 7: 08/14/20 10:03 08/14/20 10:03
== END 2020-08-15 13:48 | disposition home or self-care (01) ==
LOC: EC 07:35 → 6NMEDSUR 09:06
PROVIDERS: ADMIT Orthopaedic Surgery; ATTEND Orthopaedic Surgery
DX: M51.06 Intervertebral disc disorders with myelopathy, lumbar region (principal); M51.16 Intervertebral disc disorders with radiculopathy, lumbar region; M79.605 Pain in left leg; E03.9 Hypothyroidism, unspecified; E78.5 Hyperlipidemia, unspecified; G89.29 Other chronic pain; H35.00 Unspecified background retinopathy; I10 Essential (primary) hypertension; I49.3 Ventricular premature depolarization; M47.16 Other spondylosis with myelopathy, lumbar region; M47.26 Other spondylosis with radiculopathy, lumbar region; M48.00 Spinal stenosis, site unspecified; Z79.890 Hormone replacement therapy; Z79.899 Other long term (current) drug therapy; Z80.7 Family history of other malignant neoplasms of lymphoid, hematopoietic and related tissues; Z82.49 Family history of ischemic heart disease and other diseases of the circulatory system; Z87.891 Personal history of nicotine dependence; Z90.710 Acquired absence of both cervix and uterus
CPT/HCPCS: 62323; 96361; 96372; 96374; 96375; 99285; 36415; 80053; 85025; 85610; 85730; 70030; 72100; 73502; 72148; G0378 ×2; J2270; J1030; J2360; J2930 ×2; J2405 ×2; J1170 ×3; Q9966; 96376

== ENCOUNTER 2020-09-12 09:29 | Day surgery (SDC) | payer MEDICARE ==
[2020-09-08 15:37] VITALS: BMI 24.9
[2020-09-12 09:48] VITALS: RESP 16; TEMP 98
[2020-09-12] MEDS ORDERED: SODIUM CHLORIDE 0.9% (PF) 10 ML VIAL ONE (09:48)
[2020-09-12] MEDS ORDERED: DEXAMETHASONE SOD PHOSPHATE 10 MG/ML 1 ML VIAL ONE (09:48)
[2020-09-12] MEDS ORDERED: IOPAMIDOL M200 10 ML VIAL ONE (09:48)
[2020-09-12] MEDS ORDERED: TRIAMCINOLONE ACETONIDE 40 MG/ML 1 ML VIAL ONE (09:48)
--- NOTE | 2020-09-12 10:04 | P.PCN ---
Date of Procedure: 09/12/20 Description of Procedure: PREOPERATIVE DIAGNOSIS: 1- Lumbar Degenerative Disc Diseases 2-Lumbar spondylosis with Facet arthropathy without myelopathy 3-lumbar radiculopathy POSTOPERATIVE DIAGNOSIS: 1-Lumber Degenerative Disc Diseases 2-Lumbar spondylosis with Facet arthropathy without myelopathy. 3-lumbar radiculopathy PROCEDURE 1. Lumbar epidural steroid injection under fluoroscopic guidance at the L5-S1 level. (Fluoroscopy imaging was available in radiology department) 2. Lumbar epidurogram. ANESTHESIA: Local with 1% lidocaine 3 ml EBL: Minimal PROCEDURE INDICATION: The patient with low back pain and radiculitis symptoms unresponsive to conservative treatment. Fluoroscopy was used to optimize visualization of the needle placement and to maximize safety. PROCEDURE DESCRIPTION / TECHNIQUE: The patient was seen and identified in the preoperative area. Risks, benefits, complications including but not limited to infections ,bleeding ,allergic reaction to the medications ,nerve damage and not complete pain releife , and alternatives were discussed with the patient. The patient agreed to proceed with the procedure and signed the consent. IV was started, and vital signs were stable. Patient was taken to the OR and time out was completed. The patient was placed in the prone position on procedure table and a pillow was placed under the abdomen to reduce lumbar lordosis. The lumbosacral area was prepped and draped in the usual sterile fashion.ere closely monitored during the procedure. Conscious sedation was used during the procedure to decrease patients anxiety. Vital signs was monitered during the entire procedure. Using anterior-posterior fluoroscopy, the L5-S1 interlaminar space was identified and the skin over this site was marked and then infiltrated with 1% lidocaine subcutaneously. Subsequently, a 20-gauge Tuohy epidural needle was inserted and advanced toward the epidural space using the ``Loss of resistance technique and guided by AP and lateral fluoroscopy. The correct needle position in the epidural space was verified with the injection of 2 mL of the water soluble contrast dye Isovue 200 contrast and observing an excellent epidurogram with the epidural spread of the dye, after negative aspiration for blood and CSF and in the absence of paresthesias. Again after negative aspiration, a 6 ml mixture containing 40 mg of Kenalog , and 2 ml of preservative free Normal Saline, and 2 ml of preservative free lidocaine 1% solution was injected and a washout of epidurogram was seen. Needle was withdrawn intact, skin was cleansed, and bandages were applied. COMPLICATIONS: None DISPOSITION / PLANS: The patient was placed in a supine position and transferred to the recovery area in a stable condition for observation. There was no evidence of lower extremity motor or sensory deficit after the procedure. Patient was discharged from the recovery room after meeting discharge criteria. Home discharge instructions were given to the patient by the staff. The patient was reexamined prior to discharge. The patient will schedule a follow up in the clinic in 8 weeks.
[2020-09-12 10:09] VITALS: BP 128/78; PULSE 67
--- NOTE | 2020-09-12 10:20 | FL ---
Fluoroscopy INDICATION: Pain FINDINGS: Fluoroscopy time: 8 seconds. Images obtained: 2. IMPRESSIONS: 1. Documentation of fluoroscopy.
--- NOTE | 2020-09-14 06:20 | CDI ---
Outpatient Documentation Clarification Form Date: 09/14/20 CDS/Fish Cutting Machine Operator Name: Nannette Burt Phone: If any questions, call Lois Hermosillo Fertilizing Machine Operator at [phone] Patient Name: Kathy Ellis Admit Date: 09/12/20 Discharge Date: 09/12/20 ATTENTION: The [facility] Coding Staff appreciate your assistance in clarifying documentation. Please respond to the clarification below the line at the bottom and electronically sign. The [facility] Coding staff will review the response and follow-up if needed. Please note: Queries are made part of the Legal Health Record. If you have any questions, please contact the Fertilizing Machine Operator. Dear Dr. Watson, Please provide clarification as to the type of anesthesia used. The procedure note under anesthesia documents Local with 1% lidocaine 3 ml. Also on the procedure note under Procedure Description/Technique in the second paragraph it is documented that conscious sedation was used during the procedure. Please clarify by choosing one of the following: Moderate/conscious sedation MAC/unconscious sedation Local anesthetic Thank you for your kind consideration . MTDD
--- NOTE | 2020-09-20 08:49 | CDI ---
I used local anesthetic for this procedure, no sedation Outpatient Documentation Clarification Form Date: 09/20/20 CDS/Cp Bleacher Operator Name: Nannette Burt Phone: If any questions, call Lois Hermosillo Relay Man at [phone] Patient Name: Kathy Ellis Admit Date: 09/12/20 Discharge Date: 09/12/20 ATTENTION: The [facility] Coding Staff appreciate your assistance in clarifying documentation. Please respond to the clarification below the line at the bottom and electronically sign. The [facility] Coding staff will review the response and follow-up if needed. Please note: Queries are made part of the Legal Health Record. If you have any questions, please contact the Relay Man. Dear Dr. Watson, Please provide clarification as to the type of anesthesia used. The procedure note under anesthesia documents Local with 1% lidocaine 3 ml. Also on the procedure note under Procedure Description/Technique in the second paragraph it is documented that conscious sedation was used during the procedure. Please clarify by choosing one of the following: Moderate/conscious sedation MAC/unconscious sedation Local anesthetic Thank you for your kind consideration MTDD
== END 2020-09-12 10:30 | disposition home or self-care (01) ==
LOC: ORPAIN 09:29
PROVIDERS: ATTEND Anesthesiology
DX: M47.26 Other spondylosis with radiculopathy, lumbar region (principal); M51.16 Intervertebral disc disorders with radiculopathy, lumbar region; Z88.1 Allergy status to other antibiotic agents; Z88.2 Allergy status to sulfonamides; Z90.710 Acquired absence of both cervix and uterus
CPT/HCPCS: 62323; J1100; J3301; Q9966

== ENCOUNTER → 2020-10-05 | Outpatient (CLI) | payer MEDICARE ==
--- NOTE | 2020-10-09 11:18 | MM ---
Reason for exam: screening (asymptomatic). Last mammogram was performed 2 years and 5 months ago. History: Patient is postmenopausal. Cyst aspiration of the right breast, 1999. Took hormonal contraceptives for 8 years. Physical Findings: A clinical breast exam by your physician is recommended on an annual basis and results should be correlated with mammographic findings. MG Screening Mammo w CAD Bilateral CC and MLO view(s) were taken. Prior study comparison: May 18, 2018, bilateral MG 3d screening mammo w/cad. May 14, 2017, bilateral MG screening mammo w CAD. There are scattered fibroglandular densities. No significant changes when compared with prior studies. ASSESSMENT: Benign, BI-RAD 2 RECOMMENDATION: Routine screening mammogram of both breasts in 1 year.
== END | disposition home or self-care (01) ==
LOC: RADMAMWWP 09:38
PROVIDERS: ATTEND Family Medicine
DX: Z12.31 Encounter for screening mammogram for malignant neoplasm of breast (principal)
CPT/HCPCS: 77067

== ENCOUNTER → 2020-11-08 | Outpatient (CLI) | payer MEDICARE ==
[2020-11-08 11:10] VITALS: BP 114/77; PULSE 81; RESP 18; TEMP 97.5
--- NOTE | 2020-11-08 12:10 | P.PN ---
Progress Note - Text Progress Note Date: 11/08/20 This is a follow-up visit for this 65 years old female with a history of severe low back pain she stateslumbar degenerative disc disease, lumbar spondylosis with lumbar facet arthropathy, status post lumbar epidural steroid injections 2, her pain improved significantly she denies any motor or sensory deficit she denies any fever or night sweats and she reported that her pain level now 1-2/10 , she uses naproxen when necessary and she uses it once or twice a week, she has no side effect of the medication, patient doing very well and she will follow up in the pain clinic when necessary
== END | disposition home or self-care (01) ==
LOC: PNWHC3 10:54
PROVIDERS: ATTEND Specialist
DX: M51.36 Other intervertebral disc degeneration, lumbar region (principal); M47.816 Spondylosis without myelopathy or radiculopathy, lumbar region
CPT/HCPCS: 99211

== ENCOUNTER → 2021-03-14 | Outpatient (CLI) | payer MEDICARE ==
--- NOTE | 2021-03-14 12:48 | P.PN ---
Subjective Progress Note Date: 03/14/21 This is a 66-year-old lady with history of chronic lower back pain with rad iation to the lower extremities. Today her pain is radiating down the right leg to the right big toe with numbness and tingling in the right neck tilt. The patient has been having epidural steroid injection for the last few years which gave her momentary relief of pain. The last injection was done in August 2020. Patient denies new-onset weakness, bowel/bladder incontinence, or any other si gns or symptoms of cauda equina syndrome. There are no signs of acute intoxication, and no indications of medication diversion or overuse. In addition to above, 13-point review of systems is also negative for chest pain, shortness of breath, changes in vision, changes in hearing, new onset weakness, abdominal pain, diarrhea, extreme fatigue, malaise, fever, skin changes, homicidal or suicidal ideation, or bowel or bladder incontinence. Vital Signs: Reviewed in EMR Gen: AAOx3, NAD HEENT: PERRLA,hearing grossly normal Pulm: resp unlabored Neck: supple, trachea midline Neuro exam of the lower extremities: Absent left ankle reflex and the rest of the exam is normal and symmetrical Straight leg raising test: Negative bilaterally Duran's test: Range of motion of the lumbar spine: Facet loading test: Tenderness in the paravertebral musculature: Manan tenderness in the lumbar paravertebral musculature bilaterally Neuro: CN II-XII grossly intact, Imaging: Reviewed in EMR/chart Assessment: Right lumbar radiculopathy Lumbar spondylosis without myelopathy Plan: 1. Explanation: Opioid and psychological risk scores were reviewed. Diagnoses, prognoses, and multiple treatment options including but not limited to physical therapy, interventional therapies, adjuvant medical therapies, narcotic medication therapies, and surgery were discussed with the patient and all questions were answered to the patient's satisfaction. 2. Opioid agreement: Signed with the patient and the patient is warned not to use opioids while driving or before driving and not to combine opioids with benzodiazepines or alcohol. 3. Counseling: The patient was counseled extensively on SMOKING CESSATION, BODY MASS INDEX, EXERCISE. Specifically, the patient was instructed regarding the importance of smoking cessation, obesity, and exercise in the context of both chronic pain and overall health. 4. Procedures: schedule for lumbar epidural steroid injection at the L5-S1 level in the right paramedian approach 5. Consultations: None 6. Investigations: None 7. Medications: None prescribed from our clinic 8. Disposition: Proceed with the above-mentioned procedure as soon as possible 9. Maps were reviewed and were appropriate.
== END ==
CPT/HCPCS: 99211

== ENCOUNTER 2021-04-10 13:15 | Day surgery (SDC) | payer MEDICARE ==
[2021-04-06 14:38] VITALS: BMI 25.1
[2021-04-10] MEDS ORDERED: LACTATED RINGERS 1,000 ML IV SCH (13:27)
[2021-04-10 13:40] VITALS: TEMP 97.7
[2021-04-10] MEDS ORDERED: LIDOCAINE 1% (10MG/ML) FOR IV START INTRADERMA ONE (13:40)
[2021-04-10] MEDS ORDERED: MIDAZOLAM 2 MG/2 ML VIAL ONE (13:53)
[2021-04-10] MEDS ORDERED: fentaNYL (PF) 50 MCG/ML 2 ML AMP ONE (13:53)
[2021-04-10] MEDS ORDERED: methylPREDNISolone ACETATE 40 MG/ML 1 ML VIAL ONE (13:53)
[2021-04-10] MEDS ORDERED: IOPAMIDOL M200 10 ML VIAL ONE (13:53)
--- NOTE | 2021-04-10 14:07 | P.PCN ---
Date of Procedure: 04/10/21 Procedure(s) Performed: PREOPERATIVE DIAGNOSIS: 1- Lumbar Degenerative Disc Diseases 2-Lumbar spondylosis with Facet arthropathy without myelopathy 3-lumbar radiculopathy POSTOPERATIVE DIAGNOSIS: 1-Lumber Degenerative Disc Diseases 2-Lumbar spondylosis with Facet arthropathy without myelopathy. 3-lumbar radiculopathy PROCEDURE 1. Lumbar epidural steroid injection under fluoroscopic guidance at the L5-S1 level. (Fluoroscopy imaging was available in radiology department) 2. Lumbar epidurogram. ANESTHESIA: Local with 1% lidocaine 3 ml only EBL: Minimal PROCEDURE INDICATION: The patient with low back pain and radiculitis symptoms unresponsive to conservative treatment. Fluoroscopy was used to optimize visualization of the needle placement and to maximize safety. PROCEDURE DESCRIPTION / TECHNIQUE: The patient was seen and identified in the preoperative area. Risks, benefits, complications including but not limited to infections ,bleeding ,allergic reaction to the medications ,nerve damage and not complete pain releife , and alternatives were discussed with the patient. The patient agreed to proceed with the procedure and signed the consent. IV was started, and vital signs were stable. Patient was taken to the OR and time out was completed. The patient was placed in the prone position on procedure table and a pillow was placed under the abdomen to reduce lumbar lordosis. The lumbosacral area was prepped and draped in the usual sterile fashion.ere closely monitored during the procedure. Vital signs was monitered during the entire procedure. Using anterior-posterior fluoroscopy, the L5-S1 interlaminar space was identified and the skin over this site was marked and then infiltrated with 1% lidocaine subcutaneously. Subsequently, a 20-gauge Tuohy epidural needle was inserted and advanced toward the epidural space using the ``Loss of resistance technique and guided by AP and lateral fluoroscopy. The correct needle position in the epidural space was verified with the injection of 2 mL of the water soluble contrast dye Isovue 200 contrast and observing an excellent epidurogram with the epidural spread of the dye, after negative aspiration for blood and CSF and in the absence of paresthesias. Again after negative aspiration, a 6 ml mixture containing 80 mg of Depo-medrol , and 2 ml of preservative free Normal Saline, and 2 ml of preservative free lidocaine 1% solution was injected and a washout of epidurogram was seen. Needle was withdrawn intact, skin was cleansed, and bandages were applied. COMPLICATIONS: None DISPOSITION / PLANS: The patient was placed in a supine position and transferred to the recovery area in a stable condition for observation. There was no evidence of lower extremity motor or sensory deficit after the procedure. Patient was discharged from the recovery room after meeting discharge criteria. Home discharge instructions were given to the patient by the staff. The patient was reexamined prior to discharge. The patient will schedule a follow up in the clinic in 2-4 weeks. patient given prescription for Ursa 5/325 one tablet by mouth every 8 hours when necessary dispensed 20 and she can be discharged home.
[2021-04-10] MEDS ORDERED: IV FLUID CONTINUATION 1,000 ML IV ONE (14:12)
[2021-04-10 14:17] VITALS: PULSE 62
[2021-04-10 14:38] VITALS: BP 109/67; RESP 20
--- NOTE | 2021-04-10 16:42 | FL ---
EXAMINATION TYPE: FL guided pain mgmt statistic DATE OF EXAM: 04/10/2021 CLINICAL HISTORY: Low back pain. TECHNIQUE: Fluoroscopy. COMPARISON: None. FINDINGS: Fluoroscopic guidance was provided during pain relief procedure performed by Dr. Garcia . A total of 8 seconds of fluoroscopic time was utilized during the procedure and 1 spot images are acquired. Single image acquired shows needle localization at level of lumbosacral junction. IMPRESSION: As Above.
== END 2021-04-10 14:42 | disposition home or self-care (01) ==
LOC: ORPAIN 13:15
PROVIDERS: ATTEND Specialist
DX: M47.26 Other spondylosis with radiculopathy, lumbar region (principal); M51.16 Intervertebral disc disorders with radiculopathy, lumbar region; Z90.710 Acquired absence of both cervix and uterus; Z88.1 Allergy status to other antibiotic agents; Z88.2 Allergy status to sulfonamides; Z88.8 Allergy status to other drugs, medicaments and biological substances
CPT/HCPCS: 62323; J2250; J1030; J3010; Q9966

== ENCOUNTER → 2021-05-02 | Outpatient (CLI) | payer MEDICARE ==
[2021-05-02 13:17] VITALS: BP 121/79; PULSE 65; RESP 16; TEMP 97.6
--- NOTE | 2021-05-02 13:48 | P.PN ---
Subjective Progress Note Date: 05/02/21 This is followed visit for this 66 years old female with a chronic history of severe low back pain, she is diagnosed with lumbar radiculopathy lumbar degenerative disc disease, lumbar spondylosis with lumbar facet arthropathy, recently we have done lumbar epidural steroid injection, she reported that she h ad 0 benefit from it she continued to have severe low back pain the pain is constant and increases with any activity, he denies any motor or sensory deficit she denies any fever or night sweats, and there is no change in bowel movement or urination Objective - Vital Signs Vital signs: Vital Signs Temp 97.6 F 05/02/21 13:15 Pulse 65 05/02/21 13:15 Resp 16 05/02/21 13:15 BP 121/79 05/02/21 13:15 Pulse Ox 98 05/02/21 13:15 - Exam Physical Examinations : -Constitutiona : Cooperative , not in acute distress . -HEENT : nech : supple , no Lymphadenopathy , normal thyroid size . : eyes : no ptosis , no icterus, no photophobia . - neurologic : Cranial nerve II to XII intact , no focal neurological deffecit . -psychatric : alert , oriented X 3 , appropriate affect , intact judgment and insight . -Lymphatic : no Lymphadenopathy . - musculoskeltal : Lumber spine moter stegnth lower extremities ,thigh and legs 5/5 Right side , 5/5 Left side deep tendon reflexes : normal Knee Jerk , normal ankle Jerk lumber facet Loading Test =positive Right , positive Left Range of motion of the lumbar spine Flexion 30 degrees, extension 10 degrees strait leg raising test = positive at 45 degree Fabere test= positive Right , and positive LT . tenderness over the Sacroiliac joint on the Right , and Left sides MRI lumbar spine= 2 level lumbar degenerative disc disease multilevel lumbar spondylosis with lumbar facet arthropathy Assessment and Plan Plan: Assessment and plan= chronic low back pain secondary to lumbar degenerative disc disease , lumbar spondylosis with lumbar facet arthropathy, . MAPS Reviwed and it was apropriate . She had no benefit from lumbar epidural steroid injections Description will be good candidate to have diagnostic medial branch block lumbar area. L3,L4 ,L5 BILATERA - PQRS measures = - Patient's medications are documented in the chart. -Tobacco use is negative and counseling.Given. -Patient's has not received pneumococcal vaccine. -Advanced care planning discussed, patient not eligible. -Opiate contract NOT signed. -Pain positive and follow-up visit/procedure is scheduled. -Patient's blood pressure measured [121/79 ] , and documented in the record ,and patient will follow up with the primary care. -Patient's weight was measured and body mass index [ 25 ] within the normal limits and counseling was done. and patient instructed to follow-up with the primary care physician. -Patient was not identified as an unhealthy alcohol user Time with Patient: Less than 30
== END ==
LOC: PNWHC3 13:06
PROVIDERS: ATTEND Specialist
DX: M51.36 Other intervertebral disc degeneration, lumbar region (principal); M47.816 Spondylosis without myelopathy or radiculopathy, lumbar region; G89.29 Other chronic pain; Z87.891 Personal history of nicotine dependence; Z88.1 Allergy status to other antibiotic agents; Z88.8 Allergy status to other drugs, medicaments and biological substances
CPT/HCPCS: 99211

== ENCOUNTER → 2021-05-25 | Day surgery (SDC) | payer MEDICARE ==
[2021-05-23 17:03] VITALS: BMI 24.9
[~2021-05-25] MED LIST changes: -LIDOCAINE 1% 20 ML VIAL (10MG/ML) FOR IV START INTRADERMA PRN; +MIDAZOLAM 2 MG/2 ML VIAL ONE; +ROPIVACAINE 5MG/ML 20ML VIAL ONE; +TRIAMCINOLONE ACETONIDE 40 MG/ML 1 ML VIAL ONE; +fentaNYL (PF) 50 MCG/ML 2 ML AMP ONE
[2021-05-25 08:30] VITALS: TEMP 97.3
--- NOTE | 2021-05-25 09:05 | P.PCN ---
Date of Procedure: 05/25/21 Surgeon: Dylan Perez Pathology: none sent Condition: stable Disposition: PACU Description of Procedure: PREOPERATIVE DIAGNOSIS : 1- Lumbar spondylosis with Facet Arthropathy without myelopathy . 2- Lumber degenerative disc disease POSTOPERATIVE DIAGNOSIS: 1- Lumbar spondylosis with Facet Arthropathy without myelopathy . 2- Lumber degenerative disc disease PROCEDURE: Diagnostic bilateral L4 -5 , and L5-S1 medial branch block under fluoroscopy Physician: Dylan Perez MD ANESTHESIA: Local with 1% lidocaine; IV moderate conscious sedation by the anesthesia Department . EBL: Negligible COMPLICATION: None. PROCEDURE INDICATION: Chronic low back pain secondary to Facet arthropathy unresponsive to conservative treatment. PROCEDURE DESCRIPTION: the patient was seen and identified in the preop holding area , risks and benefits and possible complications of the procedure and alternatives were discussed with the patient, and the patient agreed to proceed with the procedure and signed the consent. IV was started and vital signs monitored during the procedure and fluoroscopy was used to maximize the benefit and accuracy of the needle placement, sedation was given to decrease patient anxiety, patient was taken to the procedure room and placed in prone position vital signs monitored. The patient was brought into the procedure room and placed in prone position. Skin was prepped with Chloraprep and draped in a sterile manner. Lidocaine 1% was used to numb the skin up at the target points that were chosen as follows: at the L5-S1 level which corresponds to the dorsal ramus of L5 the target points were at the superior medial aspect of the sacral ala on each side of the spine on the AP view of fluoroscopy, and for theL3 and L4 medial branches the target points were the connection between the transverse process and the superior to go process of L4 and L5 respectively on the oblique views of fluoroscopy. I used 22-gauge 3-1/2 inch Quincke spinal needles for this procedure and after contacting bone at the target points mentioned above I injected 1 mL of a mixture of Kenalog 40 mg +5 MLS of Ropivacaine 0.5% PF . Patient tolerated procedure well. At the end of the procedure the needles removed and a bandage applied after the skin was cleaned the cleaning solution. patient was then taken to the recovery room in stable condition and monitored in the recovery room for 20-30 minutes and discharged home in stable condition after discharge criteria met . A copy of the needle placement picture was saved to the C-arm machine.
[2021-05-25 09:13] VITALS: RESP 17
--- NOTE | 2021-05-25 09:18 | FL ---
Fluoroscopy History: Terrell Lumbar Facet 6sec fluoro time,3 images to pacs.
[2021-05-25 09:27] VITALS: PULSE 62
[2021-05-25 09:47] VITALS: BP 107/71
== END ==
LOC: ORPAIN 07:55
PROVIDERS: ATTEND Anesthesiology
DX: M47.816 Spondylosis without myelopathy or radiculopathy, lumbar region (principal); G89.29 Other chronic pain; I10 Essential (primary) hypertension; E78.5 Hyperlipidemia, unspecified; E07.9 Disorder of thyroid, unspecified
CPT/HCPCS: 64493; 64494; J2250; J3301; J3010; J2795

== ENCOUNTER → 2021-06-25 | Outpatient (CLI) | payer MEDICARE ==
--- NOTE | 2021-06-25 08:23 | P.PAINPG ---
Subjective Progress Note Date: 06/25/21 This is followed visit for this 66 years old female with a chronic history of severe low back pain, she is diagnosed with lumbar radiculopathy lumbar degenerative disc disease, lumbar spondylosis with lumbar facet arthropathy, recently we have done lumbar epidural steroid injection, she reported that she had 0 benefit from it she continued to have severe low back pain the pain is constant and increases with any activity, he denies any motor or sensory deficit she denies any fever or night sweats, and there is no change in bowel movement or urination. We then performed bilateral lumbar medial branch block at L4-L5 and L5-S1 x1. She reports greater than 90% relief for several days after the first medial branch block. She continues to do home exercise daily as well as use a heating pad as needed. Has done physical therapy in the past. Uses meloxicam as needed. Objective - Exam Physical Examinations : -Constitutiona : Cooperative , not in acute distress . -HEENT : nech : supple , no Lymphadenopathy , normal thyroid size . : eyes : no ptosis , no icterus, no photophobia . - neurologic : Cranial nerve II to XII intact , no focal neurological deffecit . -psychatric : alert , oriented X 3 , appropriate affect , intact judgment and insight . -Lymphatic : no Lymphadenopathy . - musculoskeltal : Lumber spine moter stegnth lower extremities ,thigh and legs 5/5 Right side , 5/5 Left side deep tendon reflexes : normal Knee Jerk , normal ankle Jerk lumber facet Loading Test =positive Right , positive Left Range of motion of the lumbar spine Flexion 30 degrees, extension 10 degrees strait leg raising test = positive at 45 degree Fabere test= positive Right , and positive LT . tenderness over the Sacroiliac joint on the Right , and Left sides MRI lumbar spine= 2 level lumbar degenerative disc disease multilevel lumbar spondylosis with lumbar facet arthropathy Assessment and Plan Plan: Assessment and plan= chronic low back pain secondary to lumbar degenerative disc disease , lumbar spondylosis with lumbar facet arthropathy, . MAPS Reviwed and it was apropriate . She had no benefit from lumbar epidural steroid injections Repeat bilateral L4-5 and L5-S1 MBB I have spent 26 minutes on patient care today. The time was used to review the medical records including relevant urine studies and prescription history, review of the available imaging, evaluation and examination of the patient, coordination of care with the medical staff and if applicable referring physicians, as well as creation of the medical record. - PQRS measures = - Patient's medications are documented in the chart. -Tobacco use is negative and counseling.Given. -Patient's has not received pneumococcal vaccine. -Advanced care planning discussed, patient not eligible. -Opiate contract NOT signed. -Pain positive and follow-up visit/procedure is scheduled. -Patient's blood pressure measured [121/79 ] , and documented in the record ,and patient will follow up with the primary care. -Patient's weight was measured and body mass index [ 25 ] within the normal limits and counseling was done. and patient instructed to follow-up with the primary care physician. -Patient was not identified as an unhealthy alcohol user Bursal PQRS Measure Charge Sheet PQRS Narrative: Smoking Status Former smoker Pain Intensity [Lower Back] 2 Scale Used Numeric (1 - 10) Hx Alcohol Use (MH) No Home Medications: Ambulatory Orders Atorvastatin [Lipitor] 40 mg PO HS 11/12/16 Levothyroxine Sodium [Synthroid] 88 mcg PO DAILY 05/27/17 Irbesartan/Hydrochlorothiazide [Irbesartan-Hctz 300-12.5 mg Tb] 1 tab PO DAILY 08/14/20 Methyl Salicylate/Menthol [Salonpas Patch] 1 patch TOPICAL DAILY PRN 11/06/20 Cholecalciferol [Vitamin D3 (25 Mcg = 1000 Iu)] 25 mcg PO DAILY 04/06/21 [place]-3 Fatty Acids/Fish Oil [Fish Oil 1,000 mg Softgel] 1 each PO DAILY 04/06/21 Vitamin B Complex 1 each PO DAILY 04/06/21 Meloxicam 7.5 mg PO DAILY PRN 05/25/21 Controlled Substance Measures - Controlled Substance Measures Is patient prescribed a controlled substance at discharge?: No
[2021-06-25 08:30] VITALS: BP 118/81; PULSE 90; RESP 18; TEMP 97.9
== END ==
LOC: PNWHC3 08:11
PROVIDERS: ATTEND Anesthesiology
DX: M51.36 Other intervertebral disc degeneration, lumbar region (principal); M47.816 Spondylosis without myelopathy or radiculopathy, lumbar region; G89.29 Other chronic pain; Z87.891 Personal history of nicotine dependence; Z88.1 Allergy status to other antibiotic agents; Z88.2 Allergy status to sulfonamides
CPT/HCPCS: 99211

== ENCOUNTER → 2021-07-14 | Outpatient (CLI) | payer MEDICARE ==
[2021-07-14 20:10] LABS: African American GFR (CKD) 87.8 (60.0-200.0); Albumin 4.4 g/dL (3.80-4.90); Albumin/Globulin Ratio 1.83 (1.60-3.17); Anion Gap 8.4 mmol/L (4.00-12.00); BUN/Creat Ratio 27.5 Ratio (12.00-20.00); Calcium 9.7 mg/dL (8.7-10.3); Carbon Dioxide 30.6 mmol/L (21.6-31.8); Chol/HDL Ratio 2.52; Globulin 2.4 g/dL (1.6-3.3); LDL Cholesterol,Calculated 102.2 mg/dL (0.0-131.0); Non-African American GFR(CKD) 75.8 (60.0-200.0); Total Bilirubin 0.7 mg/dL (0.2-1.2); Total Protein 6.8 g/dL (6.2-8.2); VLDL Calculation 17.8 mg/dL (5.00-40.00)
== END | disposition home or self-care (01) ==
LOC: LABWHC1 09:05
PROVIDERS: ATTEND Nurse Practitioner Adult Health
DX: E78.2 Mixed hyperlipidemia (principal); I10 Essential (primary) hypertension
CPT/HCPCS: 36415; 80053; 80061

== ENCOUNTER 2021-08-17 12:04 | Day surgery (SDC) | payer MEDICARE ==
[2021-08-16 09:27] VITALS: BMI 24.9
[~2021-08-17 12:04] MED LIST changes: -MIDAZOLAM 2 MG/2 ML VIAL ONE; -ROPIVACAINE 5MG/ML 20ML VIAL ONE; -TRIAMCINOLONE ACETONIDE 40 MG/ML 1 ML VIAL ONE; -fentaNYL (PF) 50 MCG/ML 2 ML AMP ONE
[2021-08-17 12:39] VITALS: RESP 16; TEMP 98.4
[2021-08-17] MEDS ORDERED: MIDAZOLAM 2 MG/2 ML VIAL ONE (12:47)
[2021-08-17] MEDS ORDERED: TRIAMCINOLONE ACETONIDE 40 MG/ML 1 ML VIAL ONE (12:47)
[2021-08-17] MEDS ORDERED: ROPIVACAINE 5MG/ML 20ML VIAL ONE (12:47)
[2021-08-17] MEDS ORDERED: fentaNYL (PF) 50 MCG/ML 2 ML AMP ONE (12:47)
[2021-08-17] MEDS ORDERED: LACTATED RINGERS 1,000 ML IV ONE (12:48)
--- NOTE | 2021-08-17 13:04 | P.PCN ---
Date of Procedure: 08/17/21 Procedure(s) Performed: PREOPERATIVE DIAGNOSIS : 1- Lumbar spondylosis with Facet Arthropathy without myelopathy . 2- Lumber degenerative disc disease POSTOPERATIVE DIAGNOSIS: 1- Lumbar spondylosis with Facet Arthropathy without myelopathy . 2- Lumber degenerative disc disease PROCEDURE: Diagnostic bilateral L3 , L4 , and L5 medial branch block under fluoroscopy guidance(fluoroscopy images available in the radiology Department ) ( To target the facet joint between Bilateral L4-5 , and L5-S1 ) ANESTHESIA:, monitered anesthesia care. EBL: Minimal COMPLICATION: None PROCEDURE INDICATION: Chronic low back pain secondary to Facet arthropathy unresponsive to conservative treatment. PROCEDURE DESCRIPTION: the patient was seen and identified in the preop holding area , risks and benefits and possible complications of the procedure and alternative were discussed with the patient, and the patient agreed to proceed with the procedure and signed the consent and vital signs monitored during the procedure and fluoroscopy was used to maximize the benefit and accuracy of the needle placement, and sedation was given to decrease patient anxiety, patient was taken to the procedure room and placed in prone position vital signs monitored in the back prepped with chlorhexidine X3 then under strict sterile technique using a right oblique fluoroscopy ,the junction of the transverse process and the superior articulating process of the right L3 , L4 , and L5 vertebra which corresponding to the fluoroscopy image of the eye of the Jean Carlos dog on the block side for the medial branches and subsequently , after lo joel infiltration of skin and subcu tissuies with Ropivacaine 0.5 % , one mL at each level ,then 22-gauge Quincke-type needles , 3 needle was used , each one of them placed at the junction of the base of the transverse process and the superior articular process at the appropriate level, and the needle was advanced until the periosteum contacted, needle placement confirmed with AP oblique and l ateral view and after appropriate needle placement confirmed, and after negative aspiration for heme and CSF and there was no paresthesia 1-1/2 mL of Ropivacaine 0.5% mixed with 20 mg Kenalog , then half mL injected at each level after negative aspiration the needle subsequently removed and the same procedure repeated for the left side at left side at L3 , L4 and L5 levels. At the end of the procedure and the needles removed and a bandage applied after the skin was cleaned the cleaning solution patient taken to recovery room in stable condition and monitors in the recovery room for 20-30 minutes and discharged home in stable condition after discharge criteria met and patient will follow up with the pain clinic in 2-4 weeks
[2021-08-17] MEDS ORDERED: IV FLUID CONTINUATION 900 ML IV ONE (13:06)
[2021-08-17 13:24] VITALS: BP 101/68; PULSE 66
--- NOTE | 2021-08-17 13:29 | FL ---
Fluoroscopy History: Terrell Lumbar Facet 10sec fluoro time, 4 images to PACS
== END 2021-08-17 13:35 | disposition home or self-care (01) ==
LOC: ORPAIN 12:04
PROVIDERS: ATTEND Specialist
DX: M47.816 Spondylosis without myelopathy or radiculopathy, lumbar region (principal); M51.36 Other intervertebral disc degeneration, lumbar region; Z88.1 Allergy status to other antibiotic agents; Z88.2 Allergy status to sulfonamides; I10 Essential (primary) hypertension; E78.5 Hyperlipidemia, unspecified; E07.9 Disorder of thyroid, unspecified; Z79.899 Other long term (current) drug therapy
CPT/HCPCS: 64493; 64494; J2250; J3301; J3010; J2795

== ENCOUNTER → 2021-10-08 | Outpatient (CLI) | payer MEDICARE ==
[2021-10-08 11:18] VITALS: BP 121/76; PULSE 76; RESP 18; TEMP 98
--- NOTE | 2021-10-08 11:23 | P.PAINPG ---
Subjective Progress Note Date: 10/08/21 Principal diagnosis: Lumbar Back pain Ms. Ureña is a 66-year-old pleasant female came to the [facility] pain clinic for postprocedure evaluation patient had bilateral lumbar L4-L5, and L5-S1 done on 05/25/2021, and then 11/17/2020 both times patient had more than 80% pain relief for more than 2 weeks duration.. Patient has ongoing pain for many years. Patient describes pain is aching, throbbing, constant type of pain. Pain is radiating to right side gluteal area, pain not radiating below the knees.. Patient rated pain levels are 4-5 out of 10 in severity. With the help of medications pain levels are 4-5 out of 10 in severity. Activities making pain worse. Medications, resting, interventional procedures, and physical therapy helping in relieving patient's pain. Patient pain some days better than others. Overall activities decreased secondary to pain. Because of the pain sometimes patient is feeling lack of sleep, interest, and energy. Denied any side effects with the medications. Denied any bowel or bladder problems at this time. Patient not using any walking aids for walking support. Patient denies any suicidal or homicidal ideations intent or plan. Patient denies any auditory or visual hallucinations. Patient denied any red flag symptoms related to pain. 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 Sensation grossly intact Lower extremity: Normal strength, and decreased range of motion secondary to pain Lumbar spine: Paravertebral tenderness: positive Lumbar facet load test : positive SLR test negative Sacroiliac joint tenderness: Positive Thigh thrust test: Positive SI joint compression test: Positive Fabere test: Positive - Constitutional Constitutional Comment(s): 13 point review of Systems , and symptoms negative for chest pain, shortness of breath, change in vision, change in weakness, abdominal pain, diarrhea, extreme fatigue, malaise, fever, skin changes, suicidal/homicidal ideas, bowel incontinence or bladder incontinence. Assessment and Plan Assessment: Lumbar spondylosis without myelopathy Myofascial pain syndrome, and chronic pain syndrome Sacroiliac joint dysfunction , worse on the right side Plan: #1 Diagnoses, prognosis, and multiple treatment options including but not limited to physical therapy, interventional therapy, adjunct medication therapy, narcotic medication, and surgical options were discussed with the patient. And all questions were answered to the patient's satisfaction. #2 treatment plan agreement : Patient was thoroughly discussed regarding the treatment options, alternatives, and importance of exercises as tolerated. Patient clearly understood. #3 Patient was counseled on importance of regular exercise. Including art chi, aerobic exercises as tolerated. Which helps for chronic pain, and overall well- being. Patient also counseled regarding importance of weight control rolling chronic pain, and overall other health issues. By altering diet habits, minimizing sugar intake, and processed foods helps in minimizing Inflammation. Also discussed with the patient regarding intermittent fasting. #4 investigations: MAPS- reviewed , urine drug test-reviewed #5 diagnostic tests: None #6 consultation : None # 7 interventional procedures: Right side lumbar L4-L5, and L5-S1 medial branch radiofrequency ablation. Procedure, complications, alternatives discussed with the patient. #8 medications #1 Mobic 7.5 mg by mouth daily as needed, patient recommended to drink plenty of water to minimize kidney insult, and recommended to take off to food intake to minimize stomach irritation Medication side effects, complications, long-term consequences discussed with the patient. Patient recommended to contact the pain clinic if noticed any issues with given medications. #9 morphine milligrams equivalents dose ( MME) per day: 0 from the pain clinic. # 10 percussion massage device #11 disposition: scheduled to follow up with pain clinic in 4 weeks duration. Time with Patient: Less than 30 PQRS Measure Charge Sheet Measure #130: Documentation of Current Meds in Medical Chart: Patient's medications documented in chart Measure #226: Tobacco Use: Screen & Cessation Intervention: Pt not a tobacco user Measure #111: Pneumonia Vaccination: Pneumococcal vaccine NOT administered or previously given Measure #47: Advance Care Plan: Advance care planning discussed & documented, pt chose/unable to give Measure #412: Opioid Treatment Agreement: No documentation of signed opioid treatment agreement Measure #408: Opioid Therapy Follow-up Evaluation: Patient had NO f/u eval minimum every 3 months during opioid therapy Measure #317: Preventitive Care & Scrn High Bld Press & F/U: Pre-hypertensive or hypertensive BP documented, pt will f/u with PCP Measure #128: Body Mass Index (BMI) Screening & Follow-up: BMI documented within normal parameters Measure #131: Pain Assessment & Follow-up: Pain positive & plan documented Measure #431: Unhealthy Alcohol Use Preventative Care & Scrn: Patient not identified as an unhealthy alcohol user - Pain Location Lower Back Non-Pharmacological Interventions: Massage Pharmacological Interventions: Medication PQRS Narrative: Smoking Status Former smoker Pain Intensity [Lower Back] 5 Scale Used Numeric (1 - 10) Hx Alcohol Use (MH) No Home Medications: Ambulatory Orders Atorvastatin [Lipitor] 40 mg PO HS 11/12/16 Levothyroxine Sodium [Synthroid] 88 mcg PO DAILY 05/27/17 Irbesartan/Hydrochlorothiazide [Irbesartan-Hctz 300-12.5 mg Tb] 1 tab PO DAILY 08/14/20 Methyl Salicylate/Menthol [Salonpas Patch] 1 patch TOPICAL DAILY PRN 11/06/20 Cholecalciferol [Vitamin D3 (25 Mcg = 1000 Iu)] 25 mcg PO DAILY 04/06/21 [place]-3 Fatty Acids/Fish Oil [Fish Oil 1,000 mg Softgel] 1 each PO DAILY 04/06/21 Vitamin B Complex 1 each PO DAILY 04/06/21 Meloxicam 7.5 mg PO DAILY PRN 05/25/21 Naproxen Sodium [Aleve] 220 mg PO BID PRN 10/04/21 Controlled Substance Measures - Controlled Substance Measures Is patient prescribed a controlled substance at discharge?: No
== END ==
LOC: PNWHC3 10:28
DX: M47.816 Spondylosis without myelopathy or radiculopathy, lumbar region (principal); M79.18 Myalgia, other site; G89.4 Chronic pain syndrome; M53.3 Sacrococcygeal disorders, not elsewhere classified; Z87.891 Personal history of nicotine dependence; Z88.1 Allergy status to other antibiotic agents; Z88.8 Allergy status to other drugs, medicaments and biological substances; Z88.2 Allergy status to sulfonamides
CPT/HCPCS: 99211

== ENCOUNTER 2022-02-17 09:44 | Emergency (ER) | payer MEDICARE ==
--- NOTE | 2022-02-17 11:13 | ED ---
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 He get worse throughout the night. She did a home test this morning which was positive for COVID-19. No nausea no vomiting no loss of taste or smell. No earaches. His no prior history of heart or lung disease. No other complaints or modifying factors at this time MD Complaint: cough, nasal congestion, other - Related Data Home Medications Medication Instructions Recorded Confirmed Atorvastatin [Lipitor] 40 mg PO HS 11/12/16 02/14/22 Levothyroxine Sodium [Synthroid] 88 mcg PO DAILY 05/27/17 02/14/22 Irbesartan/Hydrochlorothiazide 1 tab PO DAILY 08/14/20 02/14/22 [Irbesartan-Hctz 300-12.5 mg Tb] Methyl Salicylate/Menthol 1 patch TOPICAL DAILY PRN 11/06/20 02/14/22 [Salonpas Patch] Cholecalciferol [Vitamin D3 (25 25 mcg PO DAILY 04/06/21 02/14/22 Mcg = 1000 Iu)] [place]-3 Fatty Acids/Fish Oil [Fish 1 each PO DAILY 04/06/21 02/14/22 Oil 1,000 mg Softgel] Vitamin B Complex 1 each PO DAILY 04/06/21 02/14/22 Meloxicam 7.5 mg PO DAILY PRN 05/25/21 02/14/22 Magnesium Oxide [Mag-Ox] 400 mg PO DAILY 02/14/22 02/14/22 Allergies Allergy/AdvReac Type Severity Reaction Status Date / Time ciprofloxacin [From Cipro] Allergy Unknown Swelling Verified 02/17/22 09:55 metoclopramide [From Reglan] Allergy severe Verified 02/17/22 09:55 anxiety Sulfa (Sulfonamide Allergy Rash/Hives Verified 02/17/22 09:55 Antibiotics) Review of Systems ROS Statement: Those systems with pertinent positive or pertinent negative responses have been documented in the HPI. ROS Other: All systems not noted in ROS Statement are negative. Past Medical History Past Medical History: Hyperlipidemia, Hypertension, Musculoskeletal Disorder, Thyroid Disorder Additional Past Medical History / Comment(s): TRIGEMINAL PVCs. HYPOTHYROID. Back pain, chronic. bladder urgency History of Any Multi-Drug Resistant Organisms: None Reported Past Surgical History: Appendectomy, Cardiac Ablation, Hysterectomy, Orthopedic Surgery Additional Past Surgical History / Comment(s): TWO FAILED ATTEMPTS/CARDIAC A BLATION FOR PVC. Repair Rt rotator cuff, bicep tendon. Pain procedures Past Anesthesia/Blood Transfusion Reactions: No Reported Reaction Past Psychological History: No Psychological Hx Reported Smoking Status: Former smoker - Past Family History Mother Family Medical History: Cancer Additional Family Medical History / Comment(s): non hodgkins lymphoma Brother(s) Family Medical History: Cancer, Coronary Artery Disease (CAD) General Exam - General Exam Comments Initial Comments: This is a well-developed well-nourished awake alert oriented 3 female Limitations: no limitations General appearance: alert, in no apparent distress Head exam: Present: atraumatic, normocephalic, normal inspection Eye exam: Present: normal appearance, PERRL, EOMI. Absent: scleral icterus, conjunctival injection, periorbital swelling ENT exam: Present: mucous membranes moist, other (Boggy nasal mucosa) Neck exam: Present: normal inspection, full ROM, other (No stridor JVD or bruits). Absent: tenderness, meningismus, lymphadenopathy Respiratory exam: Present: normal lung sounds bilaterally. Absent: respiratory distress, wheezes, rales, rhonchi, stridor Cardiovascular Exam: Present: regular rate, normal rhythm, normal heart sounds. Absent: systolic murmur, diastolic murmur, rubs, gallop, clicks GI/Abdominal exam: Present: soft, normal bowel sounds. Absent: distended, tenderness, guarding, rebound, rigid Extremities exam: Present: normal inspection, full ROM, normal capillary refill. Absent: tenderness, pedal edema, joint swelling, calf tenderness Back exam: Present: normal inspection Neurological exam: Present: alert, oriented X3, CN II-XII intact Psychiatric exam: Present: normal affect, normal mood Skin exam: Present: warm, dry, intact, normal color. Absent: rash Course Vital Signs 02/17/22 02/17/22 09:50 12:19 Temperature 98.8 F Pulse Rate 86 74 Respiratory 18 16 Rate Blood Pressure 114/70 142/91 O2 Sat by Pulse 97 96 Oximetry - Reevaluation(s) Reevaluation #1: 02/17/22 11:13 The patient is a candidate for monoclonal antibody infusion. Medical Decision Making - Medical Decision Making Patient did have a positive, premature a Coban test. She did meet criteria for antibody infusion she had the antibody infusion she feels well no adverse effects she is in satisfactory condition for discharge. Discuss the use of vitamin C vitamin D3 and zinc. She will be discharged and follow-up with her doctor as needed. She also is to get a note for work she is a elementary school art teacher - Lab Data Lab Results 02/17/22 Range/Units 10:29 Coronavirus (PCR) Detected A (Not Detectd) Disposition Clinical Impression: COVID-19 Disposition: HOME SELF-CARE Condition: Good Instructions (If sedation given, give patient instructions): How to Recover from COVID-19 at Home (ED), COVID-19 (Coronavirus Disease 2019) (ED) Is patient prescribed a controlled substance at d/c from ED?: No Referrals: Vincenzo Woo DO [Primary Care Provider] - 1-2 days Decision Date: 02/17/22 Decision Time: 13:12
[2022-02-17] MEDS ORDERED: BEBTELOVIMAB (EUA) 175 MG/2 ML VIAL IV ONE (11:30)
[2022-02-17 12:20] VITALS: PULSE 74; RESP 16
[2022-02-17 13:22] VITALS: BP 131/79; TEMP 99
== END 2022-02-17 13:22 | disposition home or self-care (01) ==
LOC: EC 09:44
DX: U07.1 COVID-19 (principal); E78.5 Hyperlipidemia, unspecified; I10 Essential (primary) hypertension; E07.9 Disorder of thyroid, unspecified; Z88.1 Allergy status to other antibiotic agents; Z88.2 Allergy status to sulfonamides; Z90.49 Acquired absence of other specified parts of digestive tract; Z90.710 Acquired absence of both cervix and uterus; Z87.891 Personal history of nicotine dependence
CPT/HCPCS: 99283; 87635; Q0222

== ENCOUNTER → 2022-04-15 | Outpatient (CLI) | payer MEDICARE ==
[2022-04-15 08:30] VITALS: BP 125/78; PULSE 70; RESP 18; TEMP 98.6
--- NOTE | 2022-04-15 08:33 | P.PAINPG ---
Objective - Vital Signs Vital signs: Vital Signs Temp 98.6 F 04/15/22 08:24 Pulse 70 04/15/22 08:24 Resp 18 04/15/22 08:24 BP 125/78 04/15/22 08:24 Pulse Ox 98 04/15/22 08:24 FiO2 PQRS Measure Charge Sheet Mode of Arrival: Ambulatory Comment: A 67 yr old female with a history of severe and chronic low back pain secondary to lumbar degenerative disc diseases and lumbar spondylosis with facet arthropathy presents today for evaluation status post R RFA L3-L5. She states she expressed 25% pain relief status post procedure. States her pain level is 0 out of 10 intensity when sitting but escalates as high 6 out of 10 in intensity every morning with accompanied stiffness. Pain is localized to the lower aspect of the lumbar spine with radiation to the back of the feet. Pain is alleviated with medications, topicals, injections, heat, physical therapy which provided pain, daily home stretching regimen, massage therapy monthly, use of Epsom salt soaks, repositioning and rest. Interventional pain procedures completed include R RFA L3-L5 Patient is currently on Aleve OTC, Advil OTC, mobility from Dr. Woo Patient denies any side effects of the medication(s), denies excessive drowsiness or sleepiness, denies suicidal ideation and reports that the current pain medication is helping to control the pain and improve activities of daily living. Patient denies any motor or sensory deficits. Patient denies any fever or night sweats, denies any change in the bowel movements or urination. Physical Examination: -Constitutional: Cooperative. Not in acute distress . -HEENT: Neck is supple. No lymphadenopathy. No thyromegaly. Normal thyroid size. Eyes: No ptosis , no icterus, no photophobia. ENT: No auditory deficits. Normal oropharynx. No Thrush. - Respiratory: Chest clear to auscultations bilaterally. No wheezing. No rhonchi. - Cardiovascular: Regular rate and rhythm. S1 / S2 , no S3 , no S4. - Gastrointestinal: Abdomen soft no tenderness. Bowel sounds positive in all four quadrants. No organomegaly. - Genitourinary: Deferred. - Neurologic: Cranial nerve II to XII intact. No focal neurological deficits. - Psychatric: Alert & oriented x 3. Matching mood & appropriate affect. Judgment and insight intact. - Lymphatic: No Lymphadenopathy. - Musculoskeletal: Cervical spine: Muscle bulk/ tone/ strength in the bilateral upper extremities normal Vertebral body tenderness to palpation over Facet loading test positive Thoracic spine Muscle bulk / tone/ strength in the bilateral paraspinal muscles normal Vertebral body tender to palpation over Facet loading test positive Lumbar spine: Motor bulk/ tone/ strength lower extremities , thigh and legs : 5/5 Deep tendon reflexes : Normal Knee Jerk. Normal Ankle Jerk . Vertebral body tenderness to palpation over Lumbar Facet Loading Test positive R L4-L5, L5-S1 with jump reflex Straight Leg Raise: positive at 30 degrees right side/ left side Gaenslen's Test positive Sacral spine : Severe tenderness over the Sacroiliac joint: right side / left side Range of motion: Flexion of the lumbar spine <60 degrees Range of motion: Extension of the lumbar spine <20 degrees Gaenslen's Test positive Duran's Test positive Dimitri test: positive right side / left side Thigh Thrust Test Sacral Thrust Test Assessment and plan: Chronic low back pain secondary to lumbar degenerative disc disease , lumbar spondylosis with facet arthropathy without myelopathy Recommendation of TPIs of BL L2-L5. Risks, benefits of procedure discussed and pt verbalized understanding. Denies anticoagulant use or medical history of diabetes. All patient questions answered MAPS reviewed and it was appropriate. I have spent 31 minutes on patient care today. Dr Garcia was available by phone for the evaluation of this patient. The time was used to review the medical records including relevant urine studies and Prescription history (MAPs), review of the available imaging, evaluation and examination of the patient, coordination of care with the medical staff and if applicable referring physicians, as well as creation of the medical record - Pain Location Lower Back Non-Pharmacological Interventions: Heat, Home Exercise, Massage, Physical Therapy, Position/Reposition, Stretching Pharmacological Interventions: Block, Epidural, PRN Medication, Topical Medication PQRS Narrative: Smoking Status Former smoker Blood Pressure 125/78 Pain Intensity [Lower Back] 6 Scale Used Numeric (1 - 10) Hx Alcohol Use (MH) No Home Medications: Ambulatory Orders Atorvastatin [Lipitor] 40 mg PO HS 11/12/16 Levothyroxine Sodium [Synthroid] 88 mcg PO DAILY 05/27/17 Irbesartan/Hydrochlorothiazide [Irbesartan-Hctz 300-12.5 mg Tb] 1 tab PO DAILY 08/14/20 Methyl Salicylate/Menthol [Salonpas Patch] 1 patch TOPICAL DAILY PRN 11/06/20 Cholecalciferol [Vitamin D3 (25 Mcg = 1000 Iu)] 25 mcg PO DAILY 04/06/21 [place]-3 Fatty Acids/Fish Oil [Fish Oil 1,000 mg Softgel] 1 each PO DAILY 04/06/21 Vitamin B Complex 1 each PO DAILY 04/06/21 Meloxicam 7.5 mg PO DAILY PRN 05/25/21 Magnesium Oxide [Mag-Ox] 400 mg PO DAILY 02/14/22 Controlled Substance Measures - Controlled Substance Measures Is patient prescribed a controlled substance at discharge?: No
== END ==
LOC: PNWHC3 07:56
PROVIDERS: ATTEND Specialist
DX: G89.29 Other chronic pain (principal); M51.36 Other intervertebral disc degeneration, lumbar region; M47.816 Spondylosis without myelopathy or radiculopathy, lumbar region; Z87.891 Personal history of nicotine dependence; Z88.1 Allergy status to other antibiotic agents; Z88.8 Allergy status to other drugs, medicaments and biological substances; Z88.2 Allergy status to sulfonamides
CPT/HCPCS: 99211

== ENCOUNTER 2022-05-23 07:52 | Day surgery (SDC) | payer MEDICARE ==
[2022-05-21 14:45] VITALS: BMI 25.4
[~2022-05-23 07:52] MED LIST changes: +LIDOCAINE 1% (10MG/ML) FOR IV START INTRADERMA PRN
[2022-05-23 08:26] VITALS: TEMP 97.4
[2022-05-23] MEDS ORDERED: methylPREDNISolone ACETATE 40 MG/ML 1 ML VIAL ONE (08:45)
[2022-05-23] MEDS ORDERED: fentaNYL (PF) 50 MCG/ML 2 ML AMP ONE (08:45)
[2022-05-23] MEDS ORDERED: MIDAZOLAM 2 MG/2 ML VIAL ONE (08:45)
[2022-05-23] MEDS ORDERED: ROPIVACAINE 5MG/ML 20ML VIAL ONE (08:45)
--- NOTE | 2022-05-23 09:01 | P.PCN ---
Date of Procedure: 05/23/22 Procedure(s) Performed: Procedure= Trigger points injections lumbar paraspinal muscles L2-L5 4 on the right side, and 4 on the left side lumbar paraspinal muscles L2- L5 Preoperative diagnosis= 1-myofascial pain syndrome 2-lumbar degenerative disc disease 3-lumbar facet arthropathy Postoperative diagnosis=Same as preop Diagnosis . Complication = none Condition= stable Anesthesia= moderate sedation with intravenous Versed 1 mg , and fentanyl 50 micrograms . Sedation start time: Sedation end time :853 Indication for the procedure= patient complaining of low back pain , examination was positive for gluteal trigger point identified in the lumbar paraspinal muscles and she is here for trigger point injections, taken to the procedure room placed in sitting position on the standard monitors applied to the patient and, each of the trigger point that was marked in the preop holding area ,each one of them injected with a mixture of bupivacaine and 40 mg Depo- Medrol, total of 16 mL of bupivacaine mixed with 40 mg of Depo-Medrol, and 2 ml of the mixture was injected, each trigger point after negative aspiration ,and there was no paresthesia during the injection, injection done using 25-gauge needle ,and total of 4 trigger points injected in the right side lumbar paraspinal muscles ,and 4 trigger point injected in the left side lumbar paraspinal muscles, she tolerated the procedure well without any complications and she will follow up in the pain clinic in a few weeks
[2022-05-23 09:21] VITALS: BP 125/78; PULSE 62; RESP 16
== END 2022-05-23 09:39 | disposition home or self-care (01) ==
LOC: ORPAIN 07:52
PROVIDERS: ATTEND Specialist
DX: M79.18 Myalgia, other site (principal); M51.36 Other intervertebral disc degeneration, lumbar region; M47.816 Spondylosis without myelopathy or radiculopathy, lumbar region
CPT/HCPCS: 20553; J2250; J1030; J3010; J2795

== ENCOUNTER → 2022-08-02 | Outpatient (CLI) | payer MEDICARE ==
[2022-08-02 16:36] LABS: ALT 19 U/L (8-44); AST 25 U/L (13-35); African American GFR (CKD) 87.2 (60.0-200.0); Albumin 4.4 g/dL (3.8-4.9); Albumin/Globulin Ratio 1.76 (1.60-3.17); Alkaline Phosphatase 76 U/L (41-126); BUN/Creat Ratio 19.38 Ratio (12.00-20.00); Blood Urea Nitrogen 15.5 mg/dL (9.0-27.0); Calcium 9.9 mg/dL (8.7-10.3); Carbon Dioxide 29.6 mmol/L (20.0-27.5); Chloride 97 mmol/L (96-109); Chol/HDL Ratio 2.71 Ratio; Globulin 2.5 g/dL (1.6-3.3); Glucose 82 mg/dL (70-110); Non-African American GFR(CKD) 75.2 (60.0-200.0); Potassium 4.9 mmol/L (3.5-5.5); Sodium 136 mmol/L (135-145); Total Protein 6.9 g/dL (6.2-8.2)
== END | disposition home or self-care (01) ==
LOC: LABWHC1 09:15
PROVIDERS: ATTEND Internal Medicine Interventional Cardiology
DX: E78.2 Mixed hyperlipidemia (principal)
CPT/HCPCS: 36415; 80053; 80061

== ENCOUNTER 2022-08-16 21:29 | Emergency (ER) | payer MEDICARE ==
[2022-08-16 21:33] VITALS: TEMP 97.9
--- NOTE | 2022-08-16 22:16 | XR ---
EXAMINATION TYPE: XR chest 2V DATE OF EXAM: 08/16/2022 COMPARISON: NONE HISTORY: Chest pain TECHNIQUE: 2 views FINDINGS: Heart and mediastinum are normal. Lungs are clear. Diaphragm is normal. Bony thorax is inta ct IMPRESSION: Normal chest.
[2022-08-16 22:49] LABS: Basophils % (A) 1 %; Eosinophils # (A) 0.1 k/uL (0-0.7); Eosinophils % (A) 3 %; HCT 39.3 % (34.0-46.0); HGB 13.3 gm/dL (11.4-16.0); Lymphocytes # (A) 1.4 k/uL (1.0-4.8); Lymphocytes % (A) 26 %; MCHC 33.8 g/dL (31.0-37.0); MCV 88.7 fL (80.0-100.0); Mean Platelet Volume 7.9; Monocytes # (A) 0.4 k/uL (0-1.0); Monocytes % (A) 7 %; Neutrophils # (A) 3.4 k/uL (1.3-7.7); Neutrophils % (A) 62 %; Platelet Count 307 k/uL (150-450); RBC 4.43 m/uL (3.80-5.40); RDW 12.3 % (11.5-15.5); WBC 5.5 k/uL (3.8-10.6)
[2022-08-16 23:00] LABS: INR 0.9 (<1.2); Prothrombin Time 9.6 sec (9.0-12.0)
[2022-08-16 23:05] LABS: Albumin 4.6 g/dL (3.5-5.0); Calcium 9.8 mg/dL (8.4-10.2); Magnesium 1.8 mg/dL (1.6-2.3); Potassium 4.3 mmol/L (3.5-5.1); Total Bilirubin 0.3 mg/dL (0.2-1.3); Total Protein 7.1 g/dL (6.3-8.2)
[2022-08-17] MEDS ORDERED: ASPIRIN 81 MG PO STA (00:50)
[2022-08-17 01:14] VITALS: BP 149/77; PULSE 61; RESP 16
--- NOTE | 2022-08-17 02:09 | ED ---
General Adult HPI - General Chief complaint: Chest Pain Stated complaint: chest pain Time Seen by Provider: 08/17/22 00:10 Source: patient Mode of arrival: wheelchair Limitations: no limitations - History of Present Illness Initial comments: Patient is a 67-year-old female with past medical history remarkable for hypertension, thyroid disorder, PVCs who presents emergency Department complaining of chest pain. The chest pain started approximately 1 hour prior to arrival and was substernal in nature with radiation to bilateral left and right chest. It resolved on its own while the patient was in the waiting room. Has not reoccurred. Is currently symptom free. Did not require any medications. Did not have any shortness of breath, clamminess, diaphoresis. Did not have any nausea or vomiting. Denies any abdominal pain. Denies having any headaches or weakness. I evaluated the patient when she was placed in a room after initial laboratory studies were drawn. She has no acute complaints at this time. States the pain has not returned. I evaluated the patient multiple hours after arrival. There is been greater than 3 hours since she initially had the symptoms. It has been greater than 2 hours since symptoms have resolved. - Related Data Home Medications Medication Instructions Recorded Confirmed Atorvastatin [Lipitor] 40 mg PO HS 11/12/16 05/23/22 Levothyroxine Sodium [Synthroid] 88 mcg PO DAILY 05/27/17 05/23/22 Irbesartan/Hydrochlorothiazide 1 tab PO DAILY 08/14/20 05/23/22 [Irbesartan-Hctz 300-12.5 mg Tb] Methyl Salicylate/Menthol 1 patch TOPICAL DAILY PRN 11/06/20 05/23/22 [Salonpas Patch] Cholecalciferol [Vitamin D3 (25 25 mcg PO DAILY 04/06/21 05/23/22 Mcg = 1000 Iu)] [place]-3 Fatty Acids/Fish Oil [Fish 1 each PO DAILY 04/06/21 05/23/22 Oil 1,000 mg Softgel] Vitamin B Complex 1 each PO DAILY 04/06/21 05/23/22 Meloxicam 7.5 mg PO DAILY PRN 05/25/21 05/23/22 Magnesium Oxide [Mag-Ox] 400 mg PO DAILY 02/14/22 05/23/22 Mirabegron [Myrbetriq] 50 mg PO DAILY 05/21/22 05/23/22 Allergies Allergy/AdvReac Type Severity Reaction Status Date / Time ciprofloxacin [From Cipro] Allergy Unknown Swelling Verified 08/16/22 21:33 metoclopramide [From Reglan] Allergy severe Verified 08/16/22 21:33 anxiety Sulfa (Sulfonamide Allergy Rash/Hives Verified 08/16/22 21:33 Antibiotics) Review of Systems ROS Statement: Those systems with pertinent positive or pertinent negative responses have been documented in the HPI. Review of Systems: CONST: Denies fever EYES: Denies blurry vision ENT: Denies nasal congestion C/V: Denies Chest pain RESP: Denies shortness of breath GI: Denies abdominal pain : Denies dysuria SKIN: Denies rash. MSK: Denies joint pain. NEURO: Denies headache ROS Other: All systems not noted in ROS Statement are negative. Past Medical History Past Medical History: Hyperlipidemia, Hypertension, Musculoskeletal Disorder, Osteoarthritis (OA), Thyroid Disorder Additional Past Medical History / Comment(s): TRIGEMINAL PVC's. HYPOTHYROID. Chronic back pain. Bladder urgency. History of Any Multi-Drug Resistant Organisms: None Reported Past Surgical History: Appendectomy, Cardiac Ablation, Hysterectomy, Orthopedic Surgery Additional Past Surgical History / Comment(s): TWO FAILED ATTEMPTS/CARDIAC ABLATION FOR PVC. Right rotator cuff and bicep tendon repair, Pain Clinic Procedure. Past Anesthesia/Blood Transfusion Reactions: No Reported Reaction Past Psychological History: No Psychological Hx Reported Smoking Status: Former smoker Past Alcohol Use History: Rare Past Drug Use History: None Reported - Past Family History Mother Family Medical History: Cancer Additional Family Medical History / Comment(s): Non Hodgkins Lymphoma. Brother(s) Family Medical History: Cancer, Coronary Artery Disease (CAD) Sister(s) Family Medical History: Cancer General Exam - General Exam Comments Initial Comments: General: Appears in no acute distress. HEAD: Normal with no signs of head trauma. EYES: PERRLA, EOMI, conjunctiva normal, no discharge. ENT: Hearing grossly intact, normal oropharynx. RESPIRATORY: Clear breath sounds bilaterally. No wheezes, rales, or rhonchi. C/V: Regular rate and rhythm. S1 and S2 auscultated, no edema, peripheral pulses 2+ and intact throughout ABD: Abd is soft, nontender, nondistended EXT: Normal range of motion, no obvious deformity SKIN: No rashes or lesions observed on exposed skin. NEURO: Alert and oriented x 4. Limitations: no limitations Course Vital Signs 08/16/22 08/17/22 21:31 01:12 Temperature 97.9 F Pulse Rate 81 61 Respiratory 18 16 Rate Blood Pressure 159/95 149/77 O2 Sat by Pulse 96 96 Oximetry Medical Decision Making - Medical Decision Making Based on the patient's presentation and physical exam, I'm concerned for possible cardiopulmonary etiology for her current symptoms. She is currently asymptomatic. Vital signs within acceptable limits. Laboratory studies obtained while the patient was in triage were remarkable for an undetectable troponin. Remainder of the labs are unremarkable. Chest x-ray shows no acute cardiopulmonary process. EKG shows no signs of acute ischemia. After the patient results of her workup. She remains asymptomatic at this time. We did discuss observation admission versus discharge home. She would like to be discharged home with possible. I did offer her repeat troponin and she was in agreement this plan. We'll continue to monitor. She'll be given an aspirin. Repeat 3 hour troponin was undetectable as well. Patient remains asymptomatic. Patient's heart score is low at 3. I believe it is safe for discharge home with close follow-up. She was in agreement this plan. She will follow-up with her PCP. She is remained asymptomatic throughout her stay and throughout my evaluation. Vital signs remained within acceptable limits. I instructed the patient to follow up with their PCP in the next 1-3 days. I explained that the patient should return to the emergency department if they experience any worsening symptoms. Strict return precautions were discussed with the patient. The patient expressed understanding of these instructions. I answered all questions that the patient had. The patient was discharged home in good condition with their prescriptions and follow up information. - Lab Data Result diagrams: 08/16/22 22:27 08/16/22 22:27 Lab Results 08/16/22 08/16/22 08/16/22 Range/Units 22:27 22:27 22:27 WBC 5.5 (3.8-10.6) k/uL RBC 4.43 (3.80-5.40) m/uL Hgb 13.3 (11.4-16.0) gm/dL Hct 39.3 (34.0-46.0) % MCV 88.7 (80.0-100.0) fL MCH 30.0 (25.0-35.0) pg MCHC 33.8 (31.0-37.0) g/dL RDW 12.3 (11.5-15.5) % Plt Count 307 (150-450) k/uL MPV 7.9 Neutrophils % 62 % Lymphocytes % 26 % Monocytes % 7 % Eosinophils % 3 % Basophils % 1 % Neutrophils # 3.4 (1.3-7.7) k/uL Lymphocytes # 1.4 (1.0-4.8) k/uL Monocytes # 0.4 (0-1.0) k/uL Eosinophils # 0.1 (0-0.7) k/uL Basophils # 0.0 (0-0.2) k/uL PT 9.6 (9.0-12.0) sec INR 0.9 (<1.2) APTT 27.0 (22.0-30.0) sec Sodium 138 (137-145) mmol/L Potassium 4.3 (3.5-5.1) mmol/L Chloride 99 (98-107) mmol/L Carbon Dioxide 31 H (22-30) mmol/L Anion Gap 8 mmol/L BUN 26 H (7-17) mg/dL Creatinine 0.79 (0.52-1.04) mg/dL Est GFR (CKD-EPI)AfAm 89 (>60 ml/min/1.73 sqM) Est GFR (CKD-EPI)NonAf 77 (>60 ml/min/1.73 sqM) Glucose 85 (74-99) mg/dL Calcium 9.8 (8.4-10.2) mg/dL Magnesium 1.8 (1.6-2.3) mg/dL Total Bilirubin 0.3 (0.2-1.3) mg/dL AST 31 (14-36) U/L ALT 26 (4-34) U/L Alkaline Phosphatase 80 (38-126) U/L Troponin I (0.000-0.034) ng/mL Total Protein 7.1 (6.3-8.2) g/dL Albumin 4.6 (3.5-5.0) g/dL 08/16/22 08/17/22 Range/Units 22:27 01:12 WBC (3.8-10.6) k/uL RBC (3.80-5.40) m/uL Hgb (11.4-16.0) gm/dL Hct (34.0-46.0) % MCV (80.0-100.0) fL MCH (25.0-35.0) pg MCHC (31.0-37.0) g/dL RDW (11.5-15.5) % Plt Count (150-450) k/uL MPV Neutrophils % % Lymphocytes % % Monocytes % % Eosinophils % % Basophils % % Neutrophils # (1.3-7.7) k/uL Lymphocytes # (1.0-4.8) k/uL Monocytes # (0-1.0) k/uL Eosinophils # (0-0.7) k/uL Basophils # (0-0.2) k/uL PT (9.0-12.0) sec INR (<1.2) APTT (22.0-30.0) sec Sodium (137-145) mmol/L Potassium (3.5-5.1) mmol/L Chloride (98-107) mmol/L Carbon Dioxide (22-30) mmol/L Anion Gap mmol/L BUN (7-17) mg/dL Creatinine (0.52-1.04) mg/dL Est GFR (CKD-EPI)AfAm (>60 ml/min/1.73 sqM) Est GFR (CKD-EPI)NonAf (>60 ml/min/1.73 sqM) Glucose (74-99) mg/dL Calcium (8.4-10.2) mg/dL Magnesium (1.6-2.3) mg/dL Total Bilirubin (0.2-1.3) mg/dL AST (14-36) U/L ALT (4-34) U/L Alkaline Phosphatase (38-126) U/L Troponin I <0.012 <0.012 (0.000-0.034) ng/mL Total Protein (6.3-8.2) g/dL Albumin (3.5-5.0) g/dL - EKG Data -: EKG Interpreted by Me EKG Comments: 12-lead Electrocardiogram Interpretation Note EKG was reviewed and interpreted by myself. 12-lead ECG performed at 2143 is interpreted by me as revealing normal sinus rhythm at a rate of 68 beats per minute. [place] is normal. ER intervals 167 ms, QRS duration is 86 ms, QTc is 433 ms.. There were no ST or T wave abnormalities to suggest myocardial ischemia or injury. R wave progression across the precordium was satisfactory. By my interpretation this EKG is non-diagnostic for acute ischemia. Disposition Clinical Impression: Atypical chest pain Disposition: HOME SELF-CARE Condition: Good Instructions (If sedation given, give patient instructions): Chest Pain (ED) Is patient prescribed a controlled substance at d/c from ED?: No Referrals: Vincenzo Woo DO [Primary Care Provider] - 1-2 days Time of Disposition: 02:00
== END 2022-08-17 02:18 | disposition home or self-care (01) ==
LOC: EC 21:29
DX: R07.89 Other chest pain (principal); I10 Essential (primary) hypertension; E78.5 Hyperlipidemia, unspecified; Z79.899 Other long term (current) drug therapy; Z87.891 Personal history of nicotine dependence; Z88.1 Allergy status to other antibiotic agents; Z88.8 Allergy status to other drugs, medicaments and biological substances; Z88.2 Allergy status to sulfonamides
CPT/HCPCS: 36415; 71046; 80053; 83735; 84484; 85025; 85610; 85730; 93005

== ENCOUNTER → 2022-09-11 | Outpatient (CLI) | payer MEDICARE ==
--- NOTE | 2022-09-11 12:17 | XR ---
EXAMINATION TYPE: XR cervical spine comp DATE OF EXAM: 09/11/2022 11:16 AM INDICATION: Patient age:Female; 67 years old; Reason for study: R202; COMPARISON: None TECHNIQUE: The cervical spine was imaged in frontal, lateral, odontoid and bilateral oblique. FINDINGS: The osseous structures show straightening of the alignment without evidence of an acute fracture. The re are osteophytes noted throughout the cervical spine on the anterior and lateral aspects of the cordelia tebral bodies. The intervertebral disk spaces are preserved. Pedicles are intact. Soft tissues are within normal limits. The odontoid appears intact. Nuchal ligament calcifications near the spinous pr ocess of C7 IMPRESSION: 1. No fracture or dislocation. 2. Moderate degenerative disc disease changes of the cervical spine.
== END | disposition home or self-care (01) ==
LOC: RADXRMAIN 11:01
PROVIDERS: ATTEND Family Medicine
DX: M50.323 Other cervical disc degeneration at C6-C7 level (principal); R20.2 Paresthesia of skin
CPT/HCPCS: 72050

== ENCOUNTER → 2022-10-17 | Outpatient (CLI) | payer MEDICARE ==
--- NOTE | 2022-10-18 07:32 | MM ---
Reason for Exam: Screening (asymptomatic). Last mammogram was performed 2 year(s) and 0 month(s) ago. Patient History: Menarche at age 7. First Full-Term at age 12. Left ovary removed at age 22. Hysterectomy at age 22. Postmenopausal. Hormonal Contraceptives for 8 years until age 21. 2000, Cyst Aspiration on the Right side. Sister had breast cancer, age 74. Risk Values: Mayra 5 year model risk: 3.5%. NCI Lifetime model risk: 10.6%. Prior Study Comparison: 05/14/2017 Bilateral Screening Mammogram, [facility]. 05/18/2018 Bilateral Screening Mammogram, [facility]. 10/05/2020 Bilateral Screening Mammogram, [facility]. Tissue Density: There are scattered fibroglandular densities. Findings: Analyzed By CAD. Benign-appearing vascular along with linear calcifications are redemonstrated scattered throughout the bilateral breasts. There is no suspicious group of microcalcifications or new suspicious mass in either breast. Overall Assessment: Benign, BI-RAD 2 Management: Screening Mammogram of both breasts in 1 year. A clinical breast exam by your physician is recommended on an annual basis and results should be correlated with mammographic findings. Electronically signed and approved by: Munir Fink M.D.
== END | disposition home or self-care (01) ==
LOC: RADMAMWWP 07:40
PROVIDERS: ATTEND Family Medicine
DX: Z12.31 Encounter for screening mammogram for malignant neoplasm of breast (principal); Z90.721 Acquired absence of ovaries, unilateral; Z78.0 Asymptomatic menopausal state; Z80.3 Family history of malignant neoplasm of breast
CPT/HCPCS: 77063; 77067

== ENCOUNTER 2022-11-06 06:02 | Day surgery (SDC) | payer MEDICARE ==
[2022-11-06 06:54] VITALS: RESP 16; TEMP 97.6
[2022-11-06] MEDS ORDERED: LIDOCAINE 2% INJ 20 MG/ML (2 ML VIAL) ONE (07:00)
[2022-11-06] MEDS ORDERED: PROPOFOL 10 MG/ML 20 ML VIAL IV ONE (07:00)
--- NOTE | 2022-11-06 07:28 | P.PCN ---
Date of Procedure: 11/06/22 Procedure(s) Performed: Brief history: Patient is a pleasant 67-year-old white female scheduled for an elective upper endoscopy as well as colonoscopy as a part of evaluation of GERD/atypical chest pain and screening for colon cancer sister. Family history of colon cancer diagnosed in her brother at age 70, nephew at age 40 Procedure performed: Esophagogastroduodenoscopy with biopsy Colonoscopy Preoperative diagnosis: GERD/intermittent dysphagia to solids Screening for colon cancer and family history of colon cancer Anesthesia: MAC Procedure: After informed consent was obtained from the patient was brought into the endoscopy unit and IV sedation was administered by anesthesia under continuous monitoring. Initially upper endoscopy was done. The Olympus GF 160 video endoscope was inserted inserted into the mouth and esophagus intubated without any difficulty and was gradually advanced into the stomach and duodenum and carefully examined. The bulb and second part of the duodenum appeared normal. The scope was then withdrawn into the stomach adequately insufflated with air and upon careful examination the antrum had mild gastritis and biopsies were done from this area. Mucosa of the body, cardia and fundus appeared normal. The scope was then withdrawn into the esophagus. The GE junction was located at 40 cm to the incisors. It appeared regular with no erythema erosions or ulcerations opposite done from the distal esophagus.. Rest of the esophagus appeared normal. Patient tolerated the procedure well. At this time the patient continued to remain sedation. Initial digital rectal examination was normal. Olympus CF 160 video colonoscope was then inserted into the rectum and gradually advanced to the cecum without any difficulty. Careful examination was performed as the scope was gradually being withdrawn. The prep was excellent. The cecum, ascending colon, transverse colon, descending colon, sigmoid colon and rectum appeared normal. Scattered diffuse diverticulosis seen. Retroflexion was performed in the rectum and no lesions were noted. Patient tolerated the procedure well. Impression: 1. Upper endoscopy revealed mild antral gastritis and small hiatal hernia but no evidence of esophagitis or esophageal stricture 2. Colonoscopy revealed diffuse diverticulosis but no evidence of colorectal neoplasia Recommendations: Findings of this examination were discussed with the patient as well as her family. She was advised to follow with the biopsy results. Continue with omeprazole 20 mg daily and follow antireflux measures. Recommend repeat screening colonoscopy in 5 years.
[2022-11-06 07:50] VITALS: BP 126/90; PULSE 66
== END 2022-11-06 08:18 | disposition home or self-care (01) ==
LOC: ORWHC2ENDO 06:02
PROVIDERS: ATTEND Internal Medicine Gastroenterology
DX: Z12.11 Encounter for screening for malignant neoplasm of colon (principal); K21.9 Gastro-esophageal reflux disease without esophagitis; K57.30 Diverticulosis of large intestine without perforation or abscess without bleeding; K44.9 Diaphragmatic hernia without obstruction or gangrene; I10 Essential (primary) hypertension; E78.5 Hyperlipidemia, unspecified; E03.9 Hypothyroidism, unspecified; Z90.89 Acquired absence of other organs; Z79.890 Hormone replacement therapy; Z79.899 Other long term (current) drug therapy; Z80.0 Family history of malignant neoplasm of digestive organs
CPT/HCPCS: 88305; 88342; 43239; J2704; J2001; G0105; 45378

== ENCOUNTER 2023-01-23 05:35 | Observation (INO) | payer MEDICARE ==
[2023-01-17 11:19] VITALS: BMI 24.1
[~2023-01-23 05:35] MED LIST changes: +ACETAMINOPHEN TAB 500 MG TAB PO PRN; +GABAPENTIN 300 MG CAP PO PRN; -LACTATED RINGERS 1,000 ML IV SCH; -LIDOCAINE 1% (10MG/ML) FOR IV START INTRADERMA PRN; +MELOXICAM 7.5 MG TAB PO PRN; +ONDANSETRON 4 MG/2 ML VIAL IVP PRN; +TRANEXAMIC ACID IN NACL,ISO-OS 1,000 MG in SALINE 1 100ML.BAG IVPB PRN
[2023-01-23] MEDS ORDERED: ONDANSETRON 4 MG/2 ML VIAL IVP ONE ×2 (05:36→09:50)
[2023-01-23] MEDS ORDERED: LIDOCAINE 1% (10MG/ML) FOR IV START INTRADERMA PRN (05:36)
[2023-01-23] MEDS ORDERED: DEXAMETHASONE SOD PHOSPHATE 4 MG/ML 1 ML VIAL IV ONE (05:36)
[2023-01-23] MEDS: LACTATED RINGERS 1,000 ML IV SCH ×4 (06:16→23:50)
[2023-01-23] MEDS ORDERED: MIDAZOLAM 2 MG/2 ML VIAL IVP ONE (06:52)
[2023-01-23] MEDS ORDERED: HYDROmorphone 0.5 MG/0.5 ML SYRINGE IVP PRN ×4 (07:00→07:27)
[2023-01-23] MEDS ORDERED: TRANEXAMIC ACID IN NACL,ISO-OS 1,000 MG/100 ML BAG ONE (07:27)
[2023-01-23] MEDS ORDERED: LIDOCAINE 2% INJ 20 MG/ML (2 ML VIAL) ONE (07:27)
[2023-01-23] MEDS ORDERED: SUCCINYLCHOLINE CHLORIDE 200 MG/10 ML VIAL IV ONE (07:27)
[2023-01-23] MEDS ORDERED: PHENYLEPHRINE-0.9% NACL SYG 1,000 MCG/10 ML SYRINGE ONE (07:27)
[2023-01-23] MEDS ORDERED: DEXAMETHASONE SOD PHOSPHATE 4 MG/ML 1 ML VIAL ONE (07:27)
[2023-01-23] MEDS ORDERED: PROPOFOL 10 MG/ML 20 ML VIAL IV ONE (07:27)
[2023-01-23] MEDS ORDERED: HYDROcodone/APAP 5-325MG 1 EACH TAB PO PRN (07:27)
[2023-01-23] MEDS ORDERED: GLYCOPYRROLATE 0.2 MG/ML 2 ML VIAL ONE (07:27)
[2023-01-23] MEDS ORDERED: ROPIVACAINE 5 MG/ML 30 ML VIAL ONE (07:27)
[2023-01-23] MEDS ORDERED: SENNOSIDES-DOCUSATE SODIUM 1 EACH TAB PO PRN (07:27)
[2023-01-23] MEDS ORDERED: diphenhydrAMINE 25 MG CAP PO PRN (07:27)
[2023-01-23] MEDS ORDERED: ONDANSETRON 4 MG/2 ML VIAL IVP PRN (07:27)
[2023-01-23] MEDS ORDERED: NEOSTIGMINE 1 MG/ML 10 ML VIAL ONE (07:27)
[2023-01-23] MEDS ORDERED: ROCURONIUM 10 MG/ML (5 ML VIAL) IV ONE (07:27)
[2023-01-23] MEDS ORDERED: VANCOMYCIN 1,000 MG VIAL MISCELLANE ONE (07:58)
[2023-01-23] MEDS ORDERED: ceFAZolin 1,000 MG in SODIUM CHLORIDE 0.9% 1,000 ML IRRIGATION ONE (07:59)
--- NOTE | 2023-01-23 08:32 | P.ANPRN ---
Procedure Note - Anesthesia - Nerve Block Performed Left Interscalene Single Time Out Performed: Yes ([id number]) Date of Procedure: 01/23/23 Procedure Start Time: 06:51 Procedure Stop Time: 06:58 Location of Patient: PreOp Indication: Acute Post-Operative Pain, Dx/Pain Location (Left shoulder), Requested by Surgeon Specifically requested for management of pain by DrMar: Regis Dolan Sedation Type: Sedate with meaningful contact maintained Preparation: Sterile Prep Position: Supine Catheter: None Needle Types: Pajunk Needle Gauge: 21 Ultrasound used to visualize needle placement: Yes Ultrasound used to observe medication spread: Yes Injectate: 0.5% Ropivacaine (see comment for volume) (30 cc + 4 mg of decadron) Blood Aspirated: No Pain Paresthesia on Injection Noted: No Resistance on Injection: Normal Image Stored and Saved: Yes Events: Uneventful and Well Tolerated
[2023-01-23] MEDS ORDERED: LACTATED RINGERS 1,000 ML IV ONE (09:46)
--- NOTE | 2023-01-23 10:13 | XR ---
EXAMINATION TYPE: XR shoulder limited LT DATE OF EXAM: 01/23/2023 COMPARISON: CT left shoulder December 30, 2022 HISTORY: Left shoulder pain and osteoarthritis. TECHNIQUE: Single portable view left shoulder is obtained immediately postoperatively. FINDINGS: Metallic artifact from reverse left shoulder shoulder arthroplasty is satisfactory in posit ion on frontal portable projection. There is lucency from recent surgery along the prosthesis with ov erlying gauze and/or bandage material. IMPRESSION: As above.
--- NOTE | 2023-01-23 11:48 | OP ---
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 POSTOPERATIVE DIAGNOSIS: Left shoulder advanced osteoarthrosis with chronic rotator cuff tear. PROCEDURES PERFORMED: Left reverse total shoulder arthroplasty. ANESTHESIA: General endotracheal. ESTIMATED BLOOD LOSS: 100 mL. DRAINS: None. COMPLICATIONS: None apparent. DISPOSITION: Postanesthesia care unit. INDICATIONS: Mrs. Ellis is a very pleasant 68-year-old female with longstanding left shoulder pain. Workup including x-rays and a CT scan revealed advanced osteoarthrosis of the left shoulder. At this point, it was felt that she has failed conservative management and she would like to proceed with operative intervention. The risks of procedure were discussed with her in detail. These risks include, but are not limited to risk of infection, nerve damage, bleeding, pain, instability in the shoulder, loosening of the implants and deep infection. There is also small risk of deep vein thrombosis which could lead to fatal pulmonary embolism. The patient understood these risks. All of her questions with regard to the risks of procedure were answered to her satisfaction. Appropriate informed consent was obtained. DESCRIPTION OF PROCEDURE: The patient was identified in preoperative holding area. Surgical site was marked by both the patient and myself. She was given 2 grams of Ancef IV for prophylactic purposes. She was then transported to the operative suite. She was placed supine on the operating room table. A general anesthetic was then administered, dosed per the Anesthesia Department without apparent complication. Examination under anesthesia was then performed of the left shoulder. She had elevation to 120 degrees. External rotation at the side was to 30 degrees. She was then placed into the beach chair position and well-padded in preparation for surgery. Great care was taken to ensure that her cervical spine is in neutral alignment, well-padded and maintained that way throughout the operative procedure. Great care was also taken to ensure that her legs were appropriately padded as well. The patient's left upper extremity was then prepped and draped in usual sterile fashion. Standard surgical pause was undertaken to ensure that we were operating the correct site and that appropriate preoperative antibiotics had been given. All staff in the room were in agreement, and we proceeded. The acromion, AC joint, clavicle, and coracoid were marked with a surgical pen. A planned incision starting at the level of the clavicle and extending distally over the deltopectoral interval approximately 1 cm lateral to the coracoid was marked with a surgical pen. The incision was then made with a #10 blade scalpel. Dissection was carried down sharply to the deltoid fascia. Hemostasis was achieved with electrocautery. The deltopectoral interval was then identified at the level of the clavicle. A small band retractor was then placed onto the proximal deltoid. I then released the deltoid fascia on the lateral aspect of the cephalic vein. The vein was protected and left in its bed medially. The cephalic vein was protected throughout the entire case. I then identified the clavipectoral fascia. This was incised proximally to the level of the coracoacromial ligament. The coracoacromial ligament was left intact. I then used my finger to spread the interval between the conjoint tendon and the subscapularis. I felt for the axillary nerve which was readily palpable. I then cleared the subacromial subdeltoid spaces of bursal and scar tissue. I then utilized a brown retractor to hold the deltoid and expose the humeral head. I then proceeded with release of the subscapularis in the anterior, inferior shoulder capsule. The rotator cuff was inspected. She did have a tear in the supraspinatus. The rotator interval was then identified. The course of the biceps tendon was also identified. I then released the rotator interval. This was released starting at the base of the coracoid and then out laterally. The subscapularis and anterior capsule were then released intratendinously. The subscapularis and capsule release extended distally in a lazy-S fashion approximately 1 cm medial to the biceps tendon. I then continued to release the capsule along the inferior neck in a vertical fashion to approximately the 6 o'clock position. Great care was taken to ensure the capsule was always visualized. It was released to avoid injuring the axillary nerve. I then brought a Avendano stand with the arm externally rotated and abducted. I continued to release the capsule inferomedially to the 4 o'clock position. The inferior osteophytes were now partially removed as well. This was done with a rongeur. I then proceeded with preparation of the humerus. I removed all the goat's casarez osteophytes. I then removed the subchondral plate from the superior aspect of the humeral head utilizing a large rongeur. I then used the starting reamer to gain access to the humeral canal. This was approximately 1 cm medial to the rotator cuff insertion, and 1 cm posterior to the bicipital groove. I then prepared the humeral canal with hand reaming. I started with a 6 mm reamer and incrementally progressed until firm resistance was encountered at 10 mm. The reamer handle was then left in place. I then utilized a humeral resection guide set at 30 degrees of retrotorsion. The cutting block was then set at 1 to 2 mm above the insertion of the rotator cuff. I then proceeded to osteotomize the humeral head with an oscillating saw. I then removed the resection guide and completed the osteotomy. I then proceeded with trial stem placement. A trial size 10 was broached in the canal starting with a 6 mm reamer broach and incrementally increasing up to 10 mm broach. The 10 mm trial broach was then left in place. She did have a chronic rotator cuff tear. Decision was made to proceed with a reverse total shoulder arthroplasty at this point. I did release the biceps tendon. This tenotomized at the level of the superior labrum. I did tenodese it to the proximal soft tissues of the bicipital groove. This was done with 0 Vicryl interrupted sutures. I then inspected the joint for any loose bodies. The Bhattman retractor was then placed on the posterior glenoid rim. The arm was then placed in approximately 80 degrees of abduction and in slight flexion on the Avendano stand. I then proceeded to remove the hypertrophic labrum to definitively identify the actual glenoid. I then utilized the mini base plate guide. The starting pin was then placed in the center of the glenoid in approximately 10 degrees of inferior tilt. I then reamed with the mini base plate reamer. Minimal reaming was done as possible as to preserve as much subchondral bone as possible. I then had the bilingual inside sales representative open a Biomet Essie mini base plate. This was then impacted over the starting pin flush with the glenoid. The starting pin was removed. I then placed a 25 mm central screw. The central screw had an excellent purchase in bone. I was able to rotate the scapula through the screwdriver when the screw was fully seated. I then placed the peripheral locking screws. The inferior screw was a 25 mm screw. The anterior, superior and posterior screws were 15 mm locking screws. I then had the bilingual inside sales representative open a 36 mm glenosphere. It was very slightly offset as to place the ball slightly inferior. The Garcia taper was dried and then the glenosphere was impacted on a dry Garcia taper. The wound was then again thoroughly irrigated with sterile saline solution with antibiotic added via pulsed lavage. I also utilized the IrriSept antiseptic solution at this time. I then trialed with a standard base plate and tray. It was a mildly difficult reduction. The shoulder was stable throughout a full range of motion. There was no impingement noted. The conjoint tendon did not have any undue tension placed upon it. The shoulder was then redislocated. I had the bilingual inside sales representative open a Biomet size 10 mini stem, a standard tray and a standard polyethylene. The real stem was then impacted into the humeral canal in approximately 30 degrees of retrotorsion. The Garcia taper was dried and then the tray and poly were then impacted onto a dry Garcia taper. The shoulder was then reduced. Again it was a mildly difficult reduction. It was very stable throughout a full range of motion. The axillary nerve was palpated and was intact. The conjoint tendon did not appear to have any undue tension. At this point in time, no further work was deemed necessary. Again, the wound was irrigated with sterile saline solution antibiotic added via pulse lavage. Again, we utilized the Aricept antiseptic solution deep. I then placed approximately 500 mg of vancomycin powder deep. The deltopectoral interval was then closed with interrupted 0 Vicryl sutures. The subcutaneous tissue was again thoroughly irrigated with sterile saline solution antibiotic added via pulse lavage. The remaining 500 mg of vancomycin powder placed subcutaneously. Subcutaneous tissues were closed with 2-0 Vicryl interrupted suture. The skin was closed with 3-0 Quill suture. Dermabond was then applied to the incision. A sterile dressing was then applied. The patient's left upper extremity was placed into a standard sling. All sponge and needle counts were deemed correct prior to closure. The patient tolerated the procedure without apparent complication. She was transferred to the recovery room in stable condition. MMODL / IJN: [id number] /
[2023-01-23] MEDS ORDERED: BENZOCAINE/MENTHOL LOZENG 1 EACH LOZENGE MUCOUS MEM PRN (22:21)
[2023-01-24] MEDS: LACTATED RINGERS 1,000 ML IV SCH ×2 (01:36→11:44)
[2023-01-24] MEDS: KETOROLAC 15 MG/ML 1 ML VIAL IVP SCH ×2 (08:42→11:44)
[2023-01-24] MEDS: HYDROcodone/APAP 5-325MG 1 EACH TAB PO PRN ×2 (08:43→14:36)
[2023-01-24 08:58] VITALS: BP 110/71; PULSE 71; RESP 14; TEMP 98.3
[2023-01-24 10:55] LABS: Basophils # (A) 0.01 X 10*3/uL (0.00-0.10); Basophils % (A) 0.1 %; Eosinophils # (A) 0.03 X 10*3/uL (0.04-0.35); Eosinophils % (A) 0.3 %; HCT 33.4 % (37.2-46.3); HGB 10.9 g/dL (12.0-15.0); Immature Grans, Automated 0.4 %; Lymphocytes # (A) 1.55 X 10*3/uL (0.90-5.00); Lymphocytes % (A) 13.8 %; MCH 29.1 pg (27.0-32.0); MCHC 32.6 g/dL (32.0-37.0); MCV 89.1 fL (80.0-97.0); Mean Platelet Volume 9.4 fL (9.5-12.2); Monocytes # (A) 0.64 X 10*3/uL (0.20-1.00); Monocytes % (A) 5.7 %; NRBC Per 100 WBC 0 /100 WBCS (0.0-0.0); Neutrophils # (A) 8.96 X 10*3/uL (1.80-7.70); Neutrophils % (A) 79.7 %; Platelet Count 266 X 10*3/uL (140-440); RBC 3.75 X 10*6/uL (4.10-5.20); RDW 12.5 % (11.5-14.5); WBC 11.23 X 10*3/uL (4.50-10.00)
--- NOTE | 2023-01-24 14:14 | P.DS ---
Providers Date of admission: 01/24/23 11:31 Expected date of discharge: 01/24/23 Attending physician: Regis Dolan Consults: 01/23/23 14:20 Consult Physician Routine Consulting Provider: Leon Sprague Consult Reason/Comments: Medical management Do you want consulting provider notified?: Yes Primary care physician: Vincenzo Woo - Discharge Diagnosis(es) (1) Status post reverse total arthroplasty of left shoulder Current Visit: Yes Status: Acute (2) Osteoarthritis of left shoulder Current Visit: Yes Status: Acute Hospital Course: This is a 68-year-old female with history of severe degenerative arthritis of the left shoulder. She has failed outpatient conservative measures and would like to proceed with surgical intervention. After discussion and consideration the patient elects to proceed with reverse total shoulder arthroplasty of the left shoulder. The patient is admitted to the hospital on 01/23/2023 after being cleared by her primary care physician. The procedure of total reverse shoulder is performed without complication or sequelae. The patient is doing well postoperatively. Vital signs and labs are stable on postop day #1. The patient is discharged to home in good condition on 01/24/2023. Please see med rec for accurate list of home medications. Patient Condition at Discharge: Good Plan - Discharge Summary Discharge Rx Participant: No New Discharge Prescriptions: New Ketorolac [Toradol] 10 mg PO Q6HR PRN #20 tab PRN Reason: Pain No Action Atorvastatin [Lipitor] 20 mg PO HS Irbesartan/Hydrochlorothiazide [Irbesartan-Hctz 300-12.5 mg Tb] 1 tab PO HS Methyl Salicylate/Menthol [Salonpas Patch] 1 patch TOPICAL DAILY PRN PRN Reason: Pain Cholecalciferol [Vitamin D3 (25 Mcg = 1000 Iu)] 25 mcg PO DAILY Leon-3 Fatty Acids/Fish Oil [Fish Oil 1,000 mg Softgel] 1 each PO DAILY Meloxicam 7.5 mg PO DAILY PRN PRN Reason: Pain Oxybutynin Chloride [Oxybutynin Chloride ER] 10 mg PO DAILY Magnesium 400 mg PO DAILY Vitamin B Complex 1 each PO DAILY Omeprazole [PriLOSEC] 20 mg PO AC-BRKFST Levothyroxine Sodium [Synthroid] 100 mcg PO QAM Discharge Medication List Atorvastatin [Lipitor] 20 mg PO HS 11/12/16 [History] Irbesartan/Hydrochlorothiazide [Irbesartan-Hctz 300-12.5 mg Tb] 1 tab PO HS 08/14/20 [History] Methyl Salicylate/Menthol [Salonpas Patch] 1 patch TOPICAL DAILY PRN 11/06/20 [History] Cholecalciferol [Vitamin D3 (25 Mcg = 1000 Iu)] 25 mcg PO DAILY 04/06/21 [History] Leon-3 Fatty Acids/Fish Oil [Fish Oil 1,000 mg Softgel] 1 each PO DAILY 04/06/21 [History] Vitamin B Complex 1 each PO DAILY 04/06/21 [History] Meloxicam 7.5 mg PO DAILY PRN 05/25/21 [History] Levothyroxine Sodium [Synthroid] 100 mcg PO QAM 11/04/22 [History] Omeprazole [PriLOSEC] 20 mg PO AC-BRKFST 11/04/22 [History] Oxybutynin Chloride [Oxybutynin Chloride ER] 10 mg PO DAILY 11/04/22 [History] Magnesium 400 mg PO DAILY 01/17/23 [History] Ketorolac [Toradol] 10 mg PO Q6HR PRN #20 tab 01/24/23 [Rx] Follow up Appointment(s)/Referral(s): Regis Dolan MD [STAFF PHYSICIAN] - 01/31/23 9:30 am Patient Instructions/Handouts: *Surgery [facility] - (Anesthesia) Discharge Instructions Outpatient Surgery Activity/Diet/Wound Care/Special Instructions: Maintain sling. May come out of sling to allow arm to dangle. No overhead motion of the arm. No physical therapy until advised by Dr Dolan. May shower 2 days post op. Keep Optifoam dressing intact and remove 7 days post op. Prescriptions were [facility]operatively to [facility] [place] 7.5/325mg 1-2 po q6h. Zofran 4mg q8h as needed for nausea. Doxycycline 100mg twice daily for 5 days. Discharge Disposition: HOME SELF-CARE
[2023-01-24] MEDS ORDERED: ATORVASTATIN 20 MG TAB PO SCH (21:00)
[2023-01-25] MEDS ORDERED: LEVOTHYROXINE 100 MCG TAB PO SCH (06:30)
[2023-01-25] MEDS ORDERED: PANTOPRAZOLE 40 MG TABLET PO SCH (07:30)
[2023-01-25] MEDS ORDERED: CHOLECALCIFEROL 25 MCG (1000 IU) TABLET PO SCH (09:00)
[2023-01-25] MEDS ORDERED: NON FORMULARY DRUG (Vitamin B Complex [Vitamin B Complex] 1 EACH Capsule) PO SCH (09:00)
[2023-01-25] MEDS ORDERED: MAGNESIUM OXIDE 400 MG TAB PO SCH (09:00)
[2023-01-25] MEDS ORDERED: OXYBUTYNIN 10 MG TAB.ER.24 PO SCH (09:00)
--- NOTE | 2023-01-26 08:34 | P.CONS ---
History of Present Illness - Reason for Consult Consult date: 01/24/23 Medical management - Chief Complaint Severe arthritis left shoulder - History of Present Illness 68-year-old female with history of severe degenerative arthritis of the left shoulder. She has failed outpatient conservative measures and would like to proceed with surgical intervention. After discussion and consideration the patient elects to proceed with reverse total shoulder arthroplasty of the left shoulder. The patient is admitted to the hospital on 01/23/2023 after being cleared by her primary care physician. The procedure of total reverse shoulder is performed without complication or sequelae. The patient is doing well postoperatively. Vital signs and labs are stable on postop day #1. Review of Systems REVIEW OF SYSTEMS: CONSTITUTIONAL: No fever, no malaise, no fatigue. HEENT: No recent visual problems or hearing problems. Denied any sore throat. CARDIOVASCULAR: No chest pain, orthopnea, PND, no palpitations, no syncope. PULMONARY: No shortness of breath, no cough, no hemoptysis. GASTROINTESTINAL: No diarrhea, no nausea, no vomiting, no abdominal pain. NEUROLOGICAL: No headaches, no weakness, no numbness. HEMATOLOGICAL: Denies any bleeding or petechiae. GENITOURINARY: Denies any burning micturition, frequency, or urgency. MUSCULOSKELETAL/RHEUMATOLOGICAL: Denies any joint pain, swelling, or any muscle pain. ENDOCRINE: Denies any polyuria or polydipsia. The rest of the 14-point review of systems is negative. Past Medical History Past Medical History: GERD/Reflux, Hyperlipidemia, Hypertension, Musculoskeletal Disorder, Osteoarthritis (OA), Thyroid Disorder Additional Past Medical History / Comment(s): Recent UTI, on Amoxicillin, had repeat UA and all clear. Hiatal hernia. TRIGEMINAL PVC's. HYPOTHYROID. Chronic back pain. Bladder urgency. Hx Covid 01/2022. History of Any Multi-Drug Resistant Organisms: None Reported Past Surgical History: Appendectomy, Cardiac Ablation, Hysterectomy, Orthopedic Surgery Additional Past Surgical History / Comment(s): TWO FAILED ATTEMPTS/CARDIAC ABLATION FOR PVC, right rotator cuff and bicep tendon repair, Pain [facility] Procedure, colonoscopy, EGD. Past Anesthesia/Blood Transfusion Reactions: Postoperative Nausea & Vomiting (PONV) Additional Past Anesthesia/Blood Transfusion Reaction / Comm: Hx of nausea, better now. Hx blood transfusion no issues (1967). Past Psychological History: No Psychological Hx Reported Smoking Status: Former smoker Past Alcohol Use History: Rare Additional Past Alcohol Use History / Comment(s): STARTED SMOKING AT AGE 17, QUIT IN 1979, SMOKED 1/2PPD. Past Drug Use History: None Reported - Past Family History Mother Family Medical History: Cancer Additional Family Medical History / Comment(s): Non Hodgkins Lymphoma. Brother(s) Family Medical History: Cancer, Coronary Artery Disease (CAD) Sister(s) Family Medical History: Cancer Medications and Allergies Home Medications Medication Instructions Recorded Confirmed Type Atorvastatin [Lipitor] 20 mg PO HS 11/12/16 01/23/23 History Irbesartan/Hydrochlorothiazide 1 tab PO HS 08/14/20 01/23/23 History [Irbesartan-Hctz 300-12.5 mg Tb] Methyl Salicylate/Menthol 1 patch TOPICAL DAILY PRN 11/06/20 01/23/23 History [Salonpas Patch] Cholecalciferol [Vitamin D3 (25 25 mcg PO DAILY 04/06/21 01/23/23 History Mcg = 1000 Iu)] Jay Em-3 Fatty Acids/Fish Oil [Fish 1 each PO DAILY 04/06/21 01/23/23 History Oil 1,000 mg Softgel] Vitamin B Complex 1 each PO DAILY 04/06/21 01/23/23 History Meloxicam 7.5 mg PO DAILY PRN 05/25/21 01/23/23 History Levothyroxine Sodium [Synthroid] 100 mcg PO QAM 11/04/22 01/23/23 History Omeprazole [PriLOSEC] 20 mg PO AC-BRKFST 11/04/22 01/23/23 History Oxybutynin Chloride [Oxybutynin 10 mg PO DAILY 11/04/22 01/23/23 History Chloride ER] Magnesium 400 mg PO DAILY 01/17/23 01/23/23 History Ketorolac [Toradol] 10 mg PO Q6HR PRN #20 tab 01/24/23 Rx Allergies Allergy/AdvReac Type Severity Reaction Status Date / Time ciprofloxacin [From Cipro] Allergy Swelling Verified 01/23/23 05:56 metoclopramide [From Reglan] Allergy severe Verified 01/23/23 05:56 anxiety Sulfa (Sulfonamide Allergy Rash/Hives Verified 01/23/23 05:56 Antibiotics) tramadol AdvReac Hallucinati Verified 01/23/23 05:56 ons Physical Exam Vitals: Vital Signs Temp Pulse Pulse Resp BP BP Pulse Ox 01/24/23 08:16 98.3 F 71 14 110/71 97 01/24/23 02:00 97.0 F L 76 17 117/76 97 01/23/23 18:50 97.1 F L 67 16 109/71 96 01/23/23 14:12 97.3 F L 77 18 113/73 96 01/23/23 13:48 74 18 119/85 95 01/23/23 13:12 74 16 105/79 97 01/23/23 12:48 60 16 96/62 97 Intake and Output 01/23/23 01/24/23 01/24/23 22:59 06:59 14:59 Intake Total 850 Balance 850 Intake: Intake, IV Titration 450 Amount Lactated Ringers 1,000 ml 400 @ 100 mls/hr IV .Q10H PADMINI Rx#:[id number] ceFAZolin 2 gm In Sodium 50 Chloride 0.9% 50 ml @ 100 mls/hr IVPB Q8HR PADMINI Rx# :[id number] Oral 400 Other: # Voids 2 PHYSICAL EXAMINATION: GENERAL: The patient is alert and oriented x3, not in any acute distress. Well developed, well nourished. HEENT: Pupils are round and equally reacting to light. EOMI. No scleral icterus. No conjunctival pallor. Normocephalic, atraumatic. No pharyngeal erythema. No thyromegaly. CARDIOVASCULAR: S1 and S2 present. No murmurs, rubs, or gallops. PULMONARY: Chest is clear to auscultation, no wheezing or crackles. ABDOMEN: Soft, nontender, nondistended, normoactive bowel sounds. No palpable organomegaly. MUSCULOSKELETAL: No joint swelling or deformity. EXTREMITIES: No cyanosis, clubbing, or pedal edema. NEUROLOGICAL: Gross neurological examination did not reveal any focal deficits. SKIN: No rashes. Results CBC & Chem 7: 01/24/23 07:40 Labs: Abnormal Lab Results - Last 24 Hours (Table) 01/24/23 Range/Units 07:40 WBC 11.23 H (4.50-10.00) X 10*3/uL RBC 3.75 L (4.10-5.20) X 10*6/uL Hgb 10.9 L (12.0-15.0) g/dL Hct 33.4 L (37.2-46.3) % MPV 9.4 L (9.5-12.2) fL Neutrophils # 8.96 H (1.80-7.70) X 10*3/uL Eosinophils # 0.03 L (0.04-0.35) X 10*3/uL Assessment and Plan Assessment: 1. Severe osteoarthritis of left shoulder -- Patient is status post reverse total arthroplasty of left shoulder; POD #1 - Your management 2. Hypertension; Ibesartan/HCTZ 46497 0.5 one tablet daily at bedtime 3. Hyperlipidemia; Lipitor 20 mg daily 4. Hypothyroidism; levothyroxin 100 MCG daily 5. Urinary incontinence; oxybutynin 10 mg daily 6. Gastroesophageal reflux disease; Prilosec 20 mg daily DVT prophylaxis; SCDs CODE STATUS; full code
== END 2023-01-24 16:52 | disposition home or self-care (01) ==
LOC: OR 05:35 → 4SSUR 09:25 → OR 01-24 11:31 → 4SSUR 01-24 11:31
PROVIDERS: ADMIT Orthopaedic Surgery Sports Medicine; ATTEND Orthopaedic Surgery Sports Medicine
DX: M19.012 Primary osteoarthritis, left shoulder (principal); M75.102 Unspecified rotator cuff tear or rupture of left shoulder, not specified as traumatic; I10 Essential (primary) hypertension; E78.5 Hyperlipidemia, unspecified; E03.9 Hypothyroidism, unspecified; K21.9 Gastro-esophageal reflux disease without esophagitis; G89.29 Other chronic pain; M54.9 Dorsalgia, unspecified; K44.9 Diaphragmatic hernia without obstruction or gangrene; Z79.1 Long term (current) use of non-steroidal anti-inflammatories (NSAID); Z79.890 Hormone replacement therapy; Z79.899 Other long term (current) drug therapy; Z88.1 Allergy status to other antibiotic agents; Z88.2 Allergy status to sulfonamides; Z88.8 Allergy status to other drugs, medicaments and biological substances; Z90.710 Acquired absence of both cervix and uterus; Z86.16 Personal history of COVID-19; Z90.49 Acquired absence of other specified parts of digestive tract; I49.3 Ventricular premature depolarization; Z98.890 Other specified postprocedural states; Z97.3 Presence of spectacles and contact lenses; Z87.891 Personal history of nicotine dependence; Z80.7 Family history of other malignant neoplasms of lymphoid, hematopoietic and related tissues; Z82.49 Family history of ischemic heart disease and other diseases of the circulatory system
CPT/HCPCS: 23472; 64415; 76942; 85025; 88300; 73020; G0378; C1776; J2250; J3370; J0330; J1100; J2710; J0690 ×2; J2405 ×2; J2795; J1885; J2370; J2704; J1170 ×2; J2001

== ENCOUNTER → 2023-04-02 | Outpatient (CLI) | payer MEDICARE ==
--- NOTE | 2023-04-02 11:38 | XR ---
EXAMINATION TYPE: XR knee 4V LT DATE OF EXAM: 04/02/2023 11:06 AM INDICATION: Patient age:Female; 68 years old; Reason for study: M25.562 M54.50; [facility]. COMPARISON: None. TECHNIQUE: The Left knee(s) was examined in frontal, lateral, oblique, and sunrise projections. FINDINGS: No evidence of any acute osseous pathology, joint space narrowing, soft tissue swelling, or joint effusion is noted. Suprapatellar spurring noted. IMPRESSION: No acute osseous pathology.
--- NOTE | 2023-04-02 11:40 | XR ---
EXAMINATION TYPE: XR lumbar spine 2 or 3V DATE OF EXAM: 04/02/2023 CLINICAL HISTORY: Lower back pain TECHNIQUE: Frontal and lateral views of the lumbar spine with additional L5-S1 lateral spot view. COMPARISON: Lumbar spine radiograph 08/14/2020 FINDINGS: There are 5 lumbar type vertebral bodies identified. The lumbar spine shows satisfactory alignment w ithout evidence of acute fracture or dislocation. Vertebral body heights are within normal limits. Mo derate to advanced degenerative disc disease with disc space narrowing, endplate sclerosis, and anter ior osteophytosis. Trace retrolisthesis of L L3 redemonstrated. Straightening of the normal lumbar lo rdosis. Multilevel facet arthropathy. Multiple central lucent calcifications within the right lateral pelvis soft tissues. IMPRESSION: 1. No acute fracture of the lumbar spine. 2. Moderate to advanced degenerative disc disease and facet arthropathy of the lumbar spine.
== END | disposition home or self-care (01) ==
LOC: RADXRMAIN 10:39
PROVIDERS: ATTEND Nurse Practitioner Family
DX: M51.36 Other intervertebral disc degeneration, lumbar region (principal); M47.816 Spondylosis without myelopathy or radiculopathy, lumbar region; M25.562 Pain in left knee
CPT/HCPCS: 72100

== ENCOUNTER 2023-09-20 04:07 | Emergency (ER) | payer MEDICARE ==
[2023-09-20 04:33] VITALS: RESP 18; TEMP 97.9
[2023-09-20] MEDS ORDERED: KETOROLAC 15 MG/ML 1 ML VIAL IVP STA (05:09)
[2023-09-20 05:41] LABS: Basophils % (A) 0 %; Eosinophils # (A) 0.1 k/uL (0-0.7); Eosinophils % (A) 2 %; HCT 37.9 % (34.0-46.0); Lymphocytes # (A) 1.3 k/uL (1.0-4.8); Lymphocytes % (A) 25 %; MCH 29.6 pg (25.0-35.0); MCHC 34.2 g/dL (31.0-37.0); MCV 86.5 fL (80.0-100.0); Mean Platelet Volume 7.2; Monocytes # (A) 0.4 k/uL (0-1.0); Monocytes % (A) 8 %; Neutrophils # (A) 3.3 k/uL (1.3-7.7); Neutrophils % (A) 63 %; Platelet Count 248 k/uL (150-450); RBC 4.39 m/uL (3.80-5.40); RDW 11.7 % (11.5-15.5); WBC 5.3 k/uL (3.8-10.6)
[2023-09-20 05:45] LABS: Appearance,Urine Clear (Clear); Bilirubin,Urine Negative (Negative); Blood,Urine Negative (Negative); Color,Urine Colorless; Glucose,Urine (UA) Negative (Negative); Ketones,Urine Negative (Negative); Leukocyte Esterase,Urine Negative (Negative); Nitrite,Urine Negative (Negative); Protein,Urine Negative (Negative); Specific Gravity,Urine 1.011 (1.001-1.035); Urobilinogen,Urine <2.0 mg/dL (<2.0)
[2023-09-20 05:54] LABS: ALT 20 U/L (4-34); AST 29 U/L (14-36); African American GFR (CKD) >90 (>60 ml/min/1.73 sqM); Alkaline Phosphatase 85 U/L (38-126); Anion Gap 8 mmol/L; Blood Urea Nitrogen 22 mg/dL (7-17); Calcium 9.5 mg/dL (8.4-10.2); Carbon Dioxide 28 mmol/L (22-30); Chloride 95 mmol/L (98-107); Glucose 91 mg/dL (74-99); Non-African American GFR(CKD) 84 (>60 ml/min/1.73 sqM); Potassium 4.4 mmol/L (3.5-5.1); Sodium 131 mmol/L (137-145); Total Bilirubin 0.4 mg/dL (0.2-1.3); Total Protein 6.7 g/dL (6.3-8.2)
--- NOTE | 2023-09-20 07:13 | ED ---
Back Pain HPI - General Chief Complaint: Back Pain/Injury Stated Complaint: Back pain Time Seen by Provider: 09/20/23 04:53 Source: patient Limitations: no limitations - History of Present Illness Initial Comments: This patient is 68-year-old woman who presents to have evaluation of left low back pain to the left leg. Patient concerned that she may have urinary tract infection she has had previous her tract infections associated with back pain. Has not noted fever. Has not noted urinary symptoms. No weakness or numbness. No trauma noted. MD Complaint: back pain -: days(s) Similar Symptoms Previously: Yes Place: home Radiation: left leg Severity: moderate Quality: burning, aching Consistency: constant Improves With: none Worsens With: movement Associated Symptoms: denies other symptoms - Related Data Home Medications Medication Instructions Recorded Confirmed Atorvastatin [Lipitor] 20 mg PO HS 11/12/16 01/23/23 Irbesartan/Hydrochlorothiazide 1 tab PO HS 08/14/20 01/23/23 [Irbesartan-Hctz 300-12.5 mg Tb] Methyl Salicylate/Menthol 1 patch TOPICAL DAILY PRN 11/06/20 01/23/23 [Salonpas Patch] Cholecalciferol [Vitamin D3 (25 25 mcg PO DAILY 04/06/21 01/23/23 Mcg = 1000 Iu)] Meridian-3 Fatty Acids/Fish Oil [Fish 1 each PO DAILY 04/06/21 01/23/23 Oil 1,000 mg Softgel] Vitamin B Complex 1 each PO DAILY 04/06/21 01/23/23 Meloxicam 7.5 mg PO DAILY PRN 05/25/21 01/23/23 Levothyroxine Sodium [Synthroid] 100 mcg PO QAM 11/04/22 01/23/23 Omeprazole [PriLOSEC] 20 mg PO AC-BRKFST 11/04/22 01/23/23 Oxybutynin Chloride [Oxybutynin 10 mg PO DAILY 11/04/22 01/23/23 Chloride ER] Magnesium 400 mg PO DAILY 01/17/23 01/23/23 Previous Rx's Medication Instructions Recorded Ketorolac [Toradol] 10 mg PO Q6HR PRN #20 tab 01/24/23 predniSONE [Deltasone] 20 mg PO BID #8 tab 09/20/23 Allergies Allergy/AdvReac Type Severity Reaction Status Date / Time ciprofloxacin [From Cipro] Allergy Swelling Verified 09/20/23 04:14 metoclopramide [From Reglan] Allergy severe Verified 09/20/23 04:14 anxiety Sulfa (Sulfonamide Allergy Rash/Hives Verified 09/20/23 04:14 Antibiotics) tramadol AdvReac Hallucinati Verified 09/20/23 04:14 ons Review of Systems ROS Statement: Those systems with pertinent positive or pertinent negative responses have been documented in the HPI. ROS Other: All systems not noted in ROS Statement are negative. Constitutional: Denies: fever, chills, weakness Respiratory: Denies: cough, dyspnea Cardiovascular: Denies: chest pain, palpitations, edema Gastrointestinal: Denies: abdominal pain, vomiting, diarrhea, constipation Genitourinary: Denies: dysuria, frequency, hematuria Musculoskeletal: Reports: as per HPI, back pain Skin: Denies: rash Neurological: Denies: headache, weakness, numbness, paresthesias Past Medical History Past Medical History: GERD/Reflux, Hyperlipidemia, Hypertension, Musculoskeletal Disorder, Osteoarthritis (OA), Thyroid Disorder Additional Past Medical History / Comment(s): TRIGEMINAL PVC's. HYPOTHYROID. Chronic back pain. Bladder urgency. covid + 01/2022 History of Any Multi-Drug Resistant Organisms: None Reported Past Surgical History: Joint Replacement, Orthopedic Surgery Additional Past Surgical History / Comment(s): TWO FAILED ATTEMPTS/CARDIAC ABLATION FOR PVC. Right rotator cuff and bicep tendon repair, Pain Clinic Procedure. Past Anesthesia/Blood Transfusion Reactions: No Reported Reaction Additional Past Anesthesia/Blood Transfusion Reaction / Comment(s): hx of nausea better now. blood transfusion no issues. Past Psychological History: No Psychological Hx Reported Smoking Status: Former smoker Past Alcohol Use History: Rare Past Drug Use History: None Reported - Past Family History Mother Family Medical History: Cancer Additional Family Medical History / Comment(s): Non Hodgkins Lymphoma. Brother(s) Family Medical History: Cancer, Coronary Artery Disease (CAD) Sister(s) Family Medical History: Cancer General Exam Limitations: no limitations General appearance: alert, in no apparent distress Head exam: Present: atraumatic, normocephalic Eye exam: Present: normal appearance Respiratory exam: Present: normal lung sounds bilaterally. Absent: respiratory distress, wheezes, rales, rhonchi, stridor Cardiovascular Exam: Present: regular rate, normal rhythm, normal heart sounds. Absent: systolic murmur, diastolic murmur, rubs, gallop GI/Abdominal exam: Present: soft. Absent: distended, tenderness, guarding, rebound, rigid, pulsatile mass, hernia Extremities exam: Present: normal inspection, normal capillary refill. Absent: pedal edema, calf tenderness Back exam: Present: normal inspection, paraspinal tenderness. Absent: CVA tenderness (R), CVA tenderness (L), vertebral tenderness Neurological exam: Present: alert, reflexes normal. Absent: motor sensory deficit Skin exam: Present: warm, dry, intact, normal color. Absent: rash Course Vital Signs 09/20/23 09/20/23 04:14 07:28 Temperature 97.9 F Pulse Rate 69 80 Respiratory 18 18 Rate Blood Pressure 153/93 148/74 O2 Sat by Pulse 100 100 Oximetry Medical Decision Making - Medical Decision Making The patient had chest x-ray which I interpreted as negative for acute inf iltrate, pneumothorax, congestive heart failure Was pt. sent in by a medical professional or institution (, PA, [employer], urgent care, hospital, or fdc...) When possible be specific @ -[No] Did you speak to anyone other than the patient for history (EMS, parent, family, police, friend...)? What history was obtained from this source @ -[No] Did you review nursing and triage notes (agree or disagree)? Why? @ -[I reviewed and agree with nursing and triage notes] Were old charts reviewed (outside hosp., previous admission, EMS record, old EKG, old radiological studies, urgent care reports/EKG's, fdc records)? Report findings @ -[No old charts were reviewed] Differential Diagnosis (chest pain, altered mental status, abdominal pain women, abdominal pain men, vaginal bleeding, weakness, fever, dyspnea, syncope, headache, dizziness, GI bleed, back pain, seizure, CVA, palpatations, mental health, musculoskeletal)? @ -[Differential Back Pain: Strain, zoster, cauda equina syndrome, epidural abscess, vertebral osteomyelitis, discitis, fracture, subluxation, disc herniation, DJD, spinal stenosis, dissection, AAA, pancreatitis, peptic ulcer disease, pyelonephritis, kidney stone, this is not meant to be an all-inclusive list. EKG interpreted by me (3pts min.). @ -[As above] X-rays interpreted by me (1pt min.). @ -[I interpreted as above CT interpreted by me (1pt min.). @ -[None done] U/S interpreted by me (1pt. min.). @ -[None done] What testing was considered but not performed or refused? (CT, X-rays, U/S, l abs)? Why? @ -[None] What meds were considered but not given or refused? Why? @ -[None] Did you discuss the management of the patient with other professionals (professionals i.e. , PA, [employer], lab, RT, psych nurse, psych social worker, rfid specialist, teacher, third officer, immigration case worker)? Give summary @ -[No] Was smoking cessation discussed for >3mins.? @ -[No] Was critical care preformed (if so, how long)? @ -[No] Were there social determinants of health that impacted care today? How? (Homelessness, low income, unemployed, alcoholism, drug addiction, transportation, low edu. Level, literacy, decrease access to med. care, [facility], rehab)? @ -[No] Was there de-escalation of care discussed even if they declined (Discuss DNR or withdrawal of care, Hospice)? DNR status @ -[No] What co-morbidities impacted this encounter? (DM, HTN, Smoking, COPD, CAD, Cancer, CVA, ARF, Chemo, Hep., AIDS, mental health diagnosis, sleep apnea, morbid obesity)? @ -[None] Was patient admitted / discharged? Hospital course, mention meds given and route, prescriptions, significant lab abnormalities, going to OR and other p ertinent info. @ -[Patient is 68-year-old woman with left-sided back pain. There are no red flag signs or symptoms. The patient has had some relief with medications. She was concerned about urinary tract infection but no urinary symptoms and urine is negative. Discussed appropriate further care and follow-up as well as return parameters. Undiagnosed new problem with uncertain prognosis? @ -[No] Drug Therapy requiring intensive monitoring for toxicity (Heparin, Nitro, Insulin, Cardizem)? @ -[No] Were any procedures done? @ -[No] Diagnosis/symptom? @ -[Acute on chronic lumbar back pain Acute, or Chronic, or Acute on Chronic? @ -[Acute on chronic Uncomplicated (without systemic symptoms) or Complicated (systemic symptoms)? @ -[Uncomplicated Side effects of treatment? @ -[No] Exacerbation, Progression, or Severe Exacerbation? @ -[No] Poses a threat to life or bodily function? How? (Chest pain, USA, NM, pneumonia, PE, COPD, DKA, ARF, appy, cholecystitis, CVA, Diverticulitis, Homicidal, Suicidal, threat to staff... and all critical care pts) @ -[No] - Lab Data Result diagrams: 09/20/23 05:15 09/20/23 05:15 Lab Results 09/20/23 09/20/23 09/20/23 Range/Units 05:15 05:15 05:15 WBC 5.3 (3.8-10.6) k/uL RBC 4.39 (3.80-5.40) m/uL Hgb 13.0 (11.4-16.0) gm/dL Hct 37.9 (34.0-46.0) % MCV 86.5 (80.0-100.0) fL MCH 29.6 (25.0-35.0) pg MCHC 34.2 (31.0-37.0) g/dL RDW 11.7 (11.5-15.5) % Plt Count 248 (150-450) k/uL MPV 7.2 Neutrophils % 63 % Lymphocytes % 25 % Monocytes % 8 % Eosinophils % 2 % Basophils % 0 % Neutrophils # 3.3 (1.3-7.7) k/uL Lymphocytes # 1.3 (1.0-4.8) k/uL Monocytes # 0.4 (0-1.0) k/uL Eosinophils # 0.1 (0-0.7) k/uL Basophils # 0.0 (0-0.2) k/uL D-Dimer (<0.60) mg/L FEU Sodium 131 L (137-145) mmol/L Potassium 4.4 (3.5-5.1) mmol/L Chloride 95 L (98-107) mmol/L Carbon Dioxide 28 (22-30) mmol/L Anion Gap 8 mmol/L BUN 22 H (7-17) mg/dL Creatinine 0.73 (0.52-1.04) mg/dL Est GFR (CKD-EPI)AfAm >90 (>60 ml/min/1.73 sqM) Est GFR (CKD-EPI)NonAf 84 (>60 ml/min/1.73 sqM) Glucose 91 (74-99) mg/dL Plasma Lactic Acid Ayo (0.7-2.0) mmol/L Calcium 9.5 (8.4-10.2) mg/dL Total Bilirubin 0.4 (0.2-1.3) mg/dL AST 29 (14-36) U/L ALT 20 (4-34) U/L Alkaline Phosphatase 85 (38-126) U/L Troponin I (0.000-0.034) ng/mL Total Protein 6.7 (6.3-8.2) g/dL Albumin 4.0 (3.5-5.0) g/dL Urine Color Colorless Urine Appearance Clear (Clear) Urine pH 6.0 (5.0-8.0) Ur Specific [place] 1.011 (1.001-1.035) Urine Protein Negative (Negative) Urine Glucose (UA) Negative (Negative) Urine Ketones Negative (Negative) Urine Blood Negative (Negative) Urine Nitrite Negative (Negative) Urine Bilirubin Negative (Negative) Urine Urobilinogen <2.0 (<2.0) mg/dL Ur Leukocyte Esterase Negative (Negative) 09/20/23 09/20/23 09/20/23 Range/Units 05:15 05:15 05:15 WBC (3.8-10.6) k/uL RBC (3.80-5.40) m/uL Hgb (11.4-16.0) gm/dL Hct (34.0-46.0) % MCV (80.0-100.0) fL MCH (25.0-35.0) pg MCHC (31.0-37.0) g/dL RDW (11.5-15.5) % Plt Count (150-450) k/uL MPV Neutrophils % % Lymphocytes % % Monocytes % % Eosinophils % % Basophils % % Neutrophils # (1.3-7.7) k/uL Lymphocytes # (1.0-4.8) k/uL Monocytes # (0-1.0) k/uL Eosinophils # (0-0.7) k/uL Basophils # (0-0.2) k/uL D-Dimer 0.66 H (<0.60) mg/L FEU Sodium (137-145) mmol/L Potassium (3.5-5.1) mmol/L Chloride (98-107) mmol/L Carbon Dioxide (22-30) mmol/L Anion Gap mmol/L BUN (7-17) mg/dL Creatinine (0.52-1.04) mg/dL Est GFR (CKD-EPI)AfAm (>60 ml/min/1.73 sqM) Est GFR (CKD-EPI)NonAf (>60 ml/min/1.73 sqM) Glucose (74-99) mg/dL Plasma Lactic Acid Ayo 0.9 (0.7-2.0) mmol/L Calcium (8.4-10.2) mg/dL Total Bilirubin (0.2-1.3) mg/dL AST (14-36) U/L ALT (4-34) U/L Alkaline Phosphatase (38-126) U/L Troponin I <0.012 (0.000-0.034) ng/mL Total Protein (6.3-8.2) g/dL Albumin (3.5-5.0) g/dL Urine Color Urine Appearance (Clear) Urine pH (5.0-8.0) Ur Specific [place] (1.001-1.035) Urine Protein (Negative) Urine Glucose (UA) (Negative) Urine Ketones (Negative) Urine Blood (Negative) Urine Nitrite (Negative) Urine Bilirubin (Negative) Urine Urobilinogen (<2.0) mg/dL Ur Leukocyte Esterase (Negative) - EKG Data -: EKG Interpreted by [facility] EKG shows normal: sinus rhythm, axis (normal), intervals (normal), QRS complexes (normal), ST-T waves (normal) Rate: normal (rate 63 bpm) Disposition Clinical Impression: Mid back pain Disposition: HOME SELF-CARE Condition: Good Instructions (If sedation given, give patient instructions): Back Pain (ED) Prescriptions: predniSONE [Deltasone] 20 mg PO BID #8 tab Is patient prescribed a controlled substance at d/c from ED?: No Referrals: Vincenzo Woo DO [Primary Care Provider] - 1-2 days
--- NOTE | 2023-09-20 07:14 | XR ---
EXAMINATION TYPE: XR chest 2V DATE OF EXAM: 09/20/2023 COMPARISON: 05/16/2022 HISTORY: Shortness of breath TECHNIQUE: Frontal and lateral views of the chest are obtained. FINDINGS: Scattered senescent parenchymal changes noted. Hyperinflation compatible with COPD. No evidence for infiltrate. No evidence for atelectasis. Heart size is stable. Mediastinal structures are stable and grossly unremarkable. No evidence for hilar prominence. Degenerative changes dorsal spine. IMPRESSION: 1. No evidence for acute pulmonary disease.
[2023-09-20] MEDS ORDERED: predniSONE 20 MG TAB PO STA (07:22)
[2023-09-20 07:43] VITALS: BP 148/74; PULSE 80
== END 2023-09-20 07:29 | disposition home or self-care (01) ==
LOC: EC 04:07
DX: M54.50 Low back pain, unspecified (principal); E03.9 Hypothyroidism, unspecified; E78.5 Hyperlipidemia, unspecified; K21.9 Gastro-esophageal reflux disease without esophagitis; I10 Essential (primary) hypertension; Z79.890 Hormone replacement therapy; Z87.891 Personal history of nicotine dependence; Z79.899 Other long term (current) drug therapy; Z86.16 Personal history of COVID-19; Z88.1 Allergy status to other antibiotic agents; Z88.2 Allergy status to sulfonamides; Z88.8 Allergy status to other drugs, medicaments and biological substances; Z88.5 Allergy status to narcotic agent
CPT/HCPCS: 99284 ×2; 96374 ×2; 36415; 93005; 85379; 80053; 83605; 84484; 85025; 81003; 71046; J1885; J7512

== ENCOUNTER → 2023-11-03 | Outpatient (CLI) | payer MEDICARE ==
--- NOTE | 2023-11-03 17:35 | MM ---
Reason for Exam: Screening (asymptomatic). Last mammogram was performed 1 year(s) and 1 month(s) ago. Patient History: Menarche at age 7. First Full-Term at age 12. Left ovary removed at age 22. Hysterectomy at age 22. Postmenopausal. Hormonal Contraceptives for 8 years until age 21. 2000, Cyst Aspiration on the Right side. Sister had breast cancer, age 74. Risk Values: Mayra 5 year model risk: 3.5%. NCI Lifetime model risk: 10.1%. Prior Study Comparison: 05/18/2018 Bilateral Screening Mammogram, [facility]. 10/05/2020 Bilateral Screening Mammogram, [facility]. 10/17/2022 Bilateral MG 3D screening mammo w/cad, [facility]. Tissue Density: There are scattered fibroglandular densities. Findings: Analyzed By CAD. Benign vascular calcifications. Microclip right breast from prior biopsy. There is no suspicious group of microcalcifications or new suspicious mass in either breast. Overall Assessment: Benign, BI-RAD 2 Management: Screening Mammogram of both breasts in 1 year. See note below in regards to patient's increased five-year Mayra score. Patient should continue monthly self-breast exams. A clinical breast exam by your physician is recommended on an annual basis. This exam should not preclude additional follow-up of suspicious palpable abnormalities. Note on Mayra scores and lifetime risk: 1. A Mayra score greater than 3% is considered moderate risk. If this is the case, consider specialist referral to assess eligibility for a risk reducing agent. 2. If overall lifetime risk for the development of breast cancer is 20% or higher, the patient may qualify for future screening with alternating mammogram and breast MRI. Electronically signed and approved by: Cristino Fuentes M.D. Radiologist
== END | disposition home or self-care (01) ==
LOC: RADMAMWWP 09:37
PROVIDERS: ATTEND Family Medicine
DX: Z12.31 Encounter for screening mammogram for malignant neoplasm of breast (principal); Z80.3 Family history of malignant neoplasm of breast; Z78.0 Asymptomatic menopausal state
CPT/HCPCS: 77063; 77067

== ENCOUNTER → 2024-11-08 | Outpatient (CLI) | payer MEDICARE ==
--- NOTE | 2024-11-08 13:46 | MM ---
Reason for Exam: Screening (asymptomatic). Last screening mammogram was performed 12 month(s) ago. Patient History: Menarche at age 7. First Full-Term at age 12. Left ovary removed at age 22. Hysterectomy at age 22. Postmenopausal. Hormonal Contraceptives for 8 years until age 21. 2000, Cyst Aspiration on the Right side. Sister had breast cancer, age 74. Risk Values: Mayra 5 year model risk: 3.6%. NCI Lifetime model risk: 9.6%. Prior Study Comparison: 10/05/2020 Bilateral Screening Mammogram, [facility]. 10/17/2022 Bilateral MG 3D screening mammo w/cad, [facility]. 11/03/2023 Bilateral MG 3D screening mammo w/cad, [facility]. Tissue Density: There are scattered areas of fibroglandular density. Analyzed By CAD. Overall Assessment: Benign, BI-RAD 2 Management: Screening Mammogram of both breasts in 1 year. Electronically signed and approved by: Munir Fink M.D.
== END | disposition home or self-care (01) ==
LOC: RADMAMWWP 12:45
PROVIDERS: ATTEND Family Medicine
DX: Z12.31 Encounter for screening mammogram for malignant neoplasm of breast (principal); R92.323 Mammographic fibroglandular density, bilateral breasts; Z90.721 Acquired absence of ovaries, unilateral; Z78.0 Asymptomatic menopausal state; Z80.3 Family history of malignant neoplasm of breast
CPT/HCPCS: 77063; 77067

== ENCOUNTER → 2024-11-24 | Outpatient (CLI) | payer MEDICARE ==
--- NOTE | 2024-11-24 11:42 | BD ---
EXAMINATION TYPE: Axial Bone Density DATE OF EXAM: 11/24/2024 CLINICAL HISTORY: 69 years old Female. ICD-10 CODE: M81.0 AGE RELATED OSTEOPOROSIS , Additional Hist ory: Height: 59 in Weight: 130 lbs FRAX RISK QUESTIONS: History of Fracture in Adulthood: lt foot fx age 49 Secondary Osteoporosis: 3. Menopause before 45: partial hysterectomy age 23 MEDICATIONS: Thyroid Medications: yes Which medication: Levothyroxine How Lon+ years EXAM MEASUREMENTS: Bone mineral densitometry was performed using the [employer] System. Bone mineral density as measured about the Lumbar spine is: ----- L1-L4(G/cm2): 1.383 T Score Values are as follows: ----- L1: 1.9 ----- L2: 1.9 ----- L3: 0.9 ----- L4: 2.0 ----- L1-L4: 1.7 Z Score Values are as follows: ----- L1: 3.8 ----- L2: 3.8 ----- L3: 2.7 ----- L4: 3.9 ----- L1-L4: 3.6 Bone mineral density baseline Bone mineral density about the R hip (g/cm2): 0.843 Bone mineral density about the L hip (g/cm2): 0.880 T Score values are as follows: -----R Neck: -1.5 -----L Neck: -1.0 -----R Total: -1.3 -----L Total: -1.0 Z Score values are as follows: -----R Neck: 0.4 -----L Neck: 0.9 -----R Total: 0.4 -----L Total: 0.7 Bone mineral density baseline FRAX%s: The graph provided illustrates a 16.3% chance for a major osteoporotic fx and a 2.5% chance f or the hips probability for fx in 10 years time. IMPRESSION: Normal (Values between +1 and -1 indicate normal bone mass). Consider repeating this study in 5 year s or sooner if there is some new clinical indication. NOTE: T-SCORE=SD OF THE YOUNG ADULT MEAN. [facility], , 11/24/2024 11:39 AM
== END | disposition home or self-care (01) ==
LOC: RADBDWWP 09:14
PROVIDERS: ATTEND Obstetrics & Gynecology
DX: M81.0 Age-related osteoporosis without current pathological fracture (principal); Z78.0 Asymptomatic menopausal state
CPT/HCPCS: 77080

== ENCOUNTER → 2025-03-12 | Outpatient (CLI) | payer MEDICARE ==
[2025-03-12 13:16] LABS: ALT 26 U/L (8-44); AST 31 U/L (13-35); Chol/HDL Ratio 2.31 Ratio; VLDL Calculation 13.92 mg/dL (5.00-40.00)
== END | disposition home or self-care (01) ==
LOC: LABWHC1 10:11
PROVIDERS: ATTEND Nurse Practitioner Adult Health
DX: E78.2 Mixed hyperlipidemia (principal)
CPT/HCPCS: 36415; 80061; 84450; 84460